=== PATIENT | male | born 1970 | race Caucasian/White ===

== ENCOUNTER 2017-07-12 08:08 | Emergency (ER) | payer MEDICAID ==
[~2017-07-12] VITALS: Ht 193 cm; Wt 180.1 kg
--- NOTE | 2017-07-12 08:20 | NUR ---
Presents to ER c/o Pain and swelling to L hand s/p trip and fall 3 days ago. Also c/o Bilateral lower extremity swelling x 3 days. Patient is a/ox 4. Breathing even and unlabored. No SOB, NAD. vitals stable. Safety and comfort measures in place. Awaiting md orders.
--- NOTE | 2017-07-12 08:40 | NUR ---
new iv started on R. wrist, 18g. blood drawn and sent to lab.
[2017-07-12 09:07] LABS: BASOPHILS # (AUTO) 0.1 /CMM (0.0-0.2); BASOPHILS % (AUTO) 0.6 % (0.0-2.0); EOSINOPHILS # (AUTO) 0.4 /CMM (0.0-0.7); EOSINOPHILS % (AUTO) 3.4 % (0.0-6.0); HEMATOCRIT 39 % (39-51); HEMOGLOBIN 13.3 g/dL (13.5-17.5); LYMPHOCYTES # (AUTO) 1.8 /CMM (0.8-4.8); LYMPHOCYTES % (AUTO) 15.5 % (20.0-44.0); MEAN CORPUSCULAR HEMOGLOBIN 29 PG (26.0-33.0); MEAN CORPUSCULAR HGB CONC 34 g/dl (31.0-36.0); MEAN CORPUSCULAR VOLUME 86 fL (80-96); MONOCYTES # (AUTO) 1.5 /CMM (0.1-1.30); MONOCYTES % (AUTO) 12.7 % (2.0-12.0); NEUTROPHILS % (AUTO) 67.8 % (43.0-81.0); PLATELET COUNT (AUTO) 293 /CMM (150-450); RDW COEFFICIENT OF VARIATION 13.5 (11.5-15.0); RED BLOOD CELL COUNT(AUTO) 4.58 MIL/uL (4.5-6.0); WHITE BLOOD COUNT (AUTO) 11.8 K/uL (4.3-11.0)
--- NOTE | 2017-07-12 09:15 | NUR ---
heat treatment technician at bedside.
[2017-07-12 09:28] LABS: INR 0.93 (0.87-1.13)
[2017-07-12 09:40] LABS: CALCIUM, SERUM 9.4 mg/dL (8.5-10.1); CARBON DIOXIDE 26 mmol/L (21-32); CHLORIDE 99 mmol/L (98-107); GLUCOSE 103 mg/dL (74-106); POTASSIUM 4.1 mmol/L (3.5-5.1); SODIUM SERUM 135 mmol/L (136-145); UREA NITROGEN, BLOOD 13 mg/dL (7-18)
[2017-07-12 09:48] LABS: TROPONIN I < 0.017 ng/mL (0.00-0.056)
--- NOTE | 2017-07-12 09:51 | NUR ---
us tech at bedside.
[2017-07-12 09:54] LABS: ALANINE AMINOTRANSFERASE 39 U/L (12-78); ALBUMIN 3.4 g/dL (3.4-5.0); ALKALINE PHOSPHATASE 104 U/L (46-116); ASPARTATE AMINOTRANSFERASE 43 U/L (15-37); B-TYPE NATRIURETIC PEPTIDE 84 PG/ML (0-125); BILIRUBIN,DIRECT 0.1 mg/dL (0.0-0.2); BILIRUBIN,TOTAL 0.6 mg/dL (0.2-1.0); TOTAL PROTEIN, SERUM 7.6 g/dL (6.4-8.2)
--- NOTE | 2017-07-12 11:00 | NUR ---
Patient discharged to home in stable condition. Written and verbal after care instructions given. Patient verbalizes understanding of instruction.
--- NOTE | 2017-07-12 11:00 | NUR ---
IV removed. Catheter intact and site benign. Pressure and 4x4 applied to site. No bleeding noted.
[2017-07-12 11:02] VITALS: BP 150/95
== END 2017-07-12 11:03 | disposition home or self-care (01) ==
LOC: ER 08:12
DX: S69.82XA Other specified injuries of left wrist, hand and finger(s), initial encounter (principal); R60.0 Localized edema; I10 Essential (primary) hypertension; W01.10XA Fall on same level from slipping, tripping and stumbling with subsequent striking against unspecified object, initial encounter; Y93.89 Activity, other specified; Y92.89 Other specified places as the place of occurrence of the external cause; Y99.0 Civilian activity done for income or pay
CPT/HCPCS: 36415; 71045; 73130; 80048; 80076; 83880; 84484; 85025; 85730; 93005; 93970; 99285; A4606; Z7610

== ENCOUNTER 2017-07-15 11:38 | Emergency (ER) | payer MEDICAID ==
[~2017-07-15] VITALS: Ht 185.4 cm; Wt 180.1 kg
--- NOTE | 2017-07-15 11:50 | NUR ---
PATIENT TO ED DT COUGH X 1 WEEK. PATIENT NOTED WITH MULTIPLE REDNESS AND RASHES,. PATIENT APPEARS IN MILD DISTRESS. COMPLAINING OF COUGH. SKIN IS WARM TO TOUCH AND NON DIAPHORETIC. PATIENT IS AFEBRILE. GOWNED PT AND PLACED ON TELE MONITOR. VSS
--- NOTE | 2017-07-15 11:53 | NUR ---
PATIENT IS COMPLAINING OF SORETHROAT. PER PT IT STARTED SINCE FRIDAY. PT IS NOTED TRYING TO CLEAR HIS THROAT FREQUENTLY.
[2017-07-15] MEDS ORDERED: diphenhydrAMINE HCL 50 MG/ML VIAL IV ONE (12:00)
[2017-07-15] MEDS ORDERED: FAMOTIDINE/PF INJ 20 MG/2 ML VIAL IV ONE ×2 (12:00→12:10)
[2017-07-15] MEDS ORDERED: methylPREDNISolone SOD SUCC 125 MG/2ML VIAL IV ONE (12:00)
[2017-07-15] MEDS ORDERED: IV NS 0.9% 1,000 ML BAG IV ONE (12:00)
[2017-07-15] MEDS ORDERED: EPINEPHRINE (1:1000) MDV 30 MG/30ML VIAL SUBCUT ONE (12:00)
[2017-07-15] MEDS ORDERED: diphenhydrAMINE HCL 50 MG/ML VIAL ONE (12:09)
[2017-07-15] MEDS ORDERED: methylPREDNISolone SOD SUCC 125 MG/2ML VIAL ONE (12:09)
[2017-07-15] MEDS ORDERED: EPINEPHRINE (1:1000) 1 MG/ML AMPUL ONE (12:11)
[2017-07-15 12:13] LABS: BASOPHILS # (AUTO) 0.1 /CMM (0.0-0.2); BASOPHILS % (AUTO) 0.5 % (0.0-2.0); EOSINOPHILS # (AUTO) 0.5 /CMM (0.0-0.7); EOSINOPHILS % (AUTO) 3.3 % (0.0-6.0); HEMATOCRIT 40 % (39-51); HEMOGLOBIN 13.6 g/dL (13.5-17.5); LYMPHOCYTES % (AUTO) 12.5 % (20.0-44.0); MEAN CORPUSCULAR HEMOGLOBIN 29 PG (26.0-33.0); MEAN CORPUSCULAR HGB CONC 34 g/dl (31.0-36.0); MEAN CORPUSCULAR VOLUME 85 fL (80-96); MONOCYTES # (AUTO) 1.3 /CMM (0.1-1.30); MONOCYTES % (AUTO) 8.3 % (2.0-12.0); NEUTROPHILS # (AUTO) 12.3 /CMM (1.8-8.9); NEUTROPHILS % (AUTO) 75.4 % (43.0-81.0); PLATELET COUNT (AUTO) 402 /CMM (150-450); RDW COEFFICIENT OF VARIATION 12.3 (11.5-15.0); RED BLOOD CELL COUNT(AUTO) 4.62 MIL/uL (4.5-6.0); WHITE BLOOD COUNT (AUTO) 16.2 K/uL (4.3-11.0)
[2017-07-15] MEDS ORDERED: IV NS 0.9% 0 ML IV ONE (12:20)
[2017-07-15] MEDS ORDERED: IOHEXOL-300 100 ML VIAL IV ONE (12:20)
[2017-07-15 12:22] LABS: CALCIUM, SERUM 9.2 mg/dL (8.5-10.1); POTASSIUM 3.8 mmol/L (3.5-5.1)
--- NOTE | 2017-07-15 13:05 | NUR ---
CALLED DR GILL[facility] ANSWERING SERV[facility], PREFORM MACHINE OPERATOR DR AMARO WAS PAGED.
--- NOTE | 2017-07-15 13:32 | NUR ---
CALLED DR MONTOYA ANSWERING SERVICE [phone], WAS PAGED.
--- NOTE | 2017-07-15 13:47 | NUR ---
CALLED PHARMACY FOR CLINDAMUCIN
--- NOTE | 2017-07-15 13:50 | NUR ---
CALLED DR SMITH PAINTING MANAGER ANESTHESIOLOGY WAS PAGED.
[2017-07-15] MEDS ORDERED: CLINDAMYCIN 600 MG in IV D5W 100 ML IV ONE (14:00)
--- NOTE | 2017-07-15 14:10 | NUR ---
CALLED [facility] [place] TO PRESENT CASE. ON THE PHONE WITH DR VIEIRA.
--- NOTE | 2017-07-15 14:15 | NUR ---
DR VIEIRA SPEAKING TO DR SMITH (ANESTHELOGIST)
--- NOTE | 2017-07-15 14:21 | NUR ---
CALLED [facility], SPOKE TO HEMP FIBER TAKER OFF, HE STATED THEY DONT HAVE AND ENT SENIOR TECHNICAL EDITOR.
--- NOTE | 2017-07-15 14:28 | NUR ---
CALLED [facility], THEY STATED THEY ARE CLOSED DUE TO SATURATION.
--- NOTE | 2017-07-15 14:37 | NUR ---
CALLED [facility] , THEY STATED THEY DONT HAVE ANY BEDS AVAILABLE.
--- NOTE | 2017-07-15 14:48 | NUR ---
DR. AMARO (ENT) CALLED BACK, TALKING TO DR. VIEIRA.
--- NOTE | 2017-07-15 14:54 | NUR ---
CALLED [facility], SPOKE WITH SORTING GRAPPLE OPERATOR, SHE STATED THEY ARE FULL AND HAVE NO AVILABLE BEDS.
--- NOTE | 2017-07-15 15:14 | NUR ---
RT CALLED FOR RACEMIC BREATHING TREATMENT
--- NOTE | 2017-07-15 15:20 | NUR ---
CALLED [facility] SPOKE WITH [facility], THEY ARE WORKING ON FINDING A BED.
[2017-07-15] MEDS ORDERED: RACEPINEPHRINE HCL 2.25% NEB 0.5 ML VIAL.NEB IH ONE ×2 (15:24→15:30)
--- NOTE | 2017-07-15 16:58 | NUR ---
CALLED [facility], THEY HAVE ENT SERVICE BUT DO NOT HAVE ANY BEDS AVAILABLE AT THE TIME.
--- NOTE | 2017-07-15 17:46 | NUR ---
PATIENT ON BED, VSS
--- NOTE | 2017-07-15 18:10 | NUR ---
PT WITH EPISODE OF REMOVING O2 SENSOR AND BLOOD PRESSURE CUFF. EXPLAINED IMPORTANCE
--- NOTE | 2017-07-15 19:16 | NUR ---
RECEIVED REPORT FROM RUSSELL BAINS FOR SHI. PT APPEARS COMFORTABLE. PT REFUSED TO CHECK 02% AT THIS TIME. NO SOB NOTED. Addendum: 07/15/17 at 1916 by NII RISK AND BENEFITS EXPLAINED X3. PT STRONGLY REFUSED AT THIS TIME.
--- NOTE | 2017-07-15 19:17 | NUR ---
PT TO REMAIN NPO UNTILL FURTHER ORDER. PT AWARE
--- NOTE | 2017-07-15 19:20 | NUR ---
Patient does not wish to proceed with medical care recommended by Dr. Roman. Patient given information related to possible complications, up to and including , which could occur as a result of leaving the hospital at this time. Patient verbalizes understanding of risks involved due to leaving against medical advice. Patient has signed AMA form. IV removed. Catheter intact and site benign. Pressure and 4x4 applied to site. No bleeding noted.
[2017-07-15 19:24] VITALS: BP 146/90
== END 2017-07-15 19:24 | disposition left against medical advice (07) ==
LOC: ER 11:41
DX: D72.829 Elevated white blood cell count, unspecified (principal); E66.01 Morbid (severe) obesity due to excess calories; J02.9 Acute pharyngitis, unspecified; I10 Essential (primary) hypertension; F17.200 Nicotine dependence, unspecified, uncomplicated; Z60.2 Problems related to living alone
CPT/HCPCS: 36415; 70360-TC; 71045-TC; 80048-TC; 85025-TC; A4606; J0171; J1200; J2930; J3490; J7050; J7060; Q9967; Z7610

== ENCOUNTER 2017-12-19 13:06 | Inpatient (IN) | payer MEDICAID ==
[~2017-12-19] VITALS: Ht 193 cm; Wt 178.7 kg
[2017-12-19 12:00] VITALS: BP 89/60
--- NOTE | 2017-12-19 13:10 | NUR ---
C/O TACHYCARDIA AND SOB, ALSO C/O CHEST DISCOMFORT STARTED THIS AM, NAD NOTED, VSS, RESP EVEN AND UNLABORED, PT WAS PUT ON MONITOR, WAITING FOR MD DEWEY
[2017-12-19] MEDS ORDERED: IV NS 0.9% 500 ML BAG IV ONE (13:30)
[2017-12-19 13:45] LABS: BASOPHILS # (AUTO) 0.2 /CMM (0.0-0.2); BASOPHILS % (AUTO) 1.2 % (0.0-2.0); EOSINOPHILS % (AUTO) 0.7 % (0.0-6.0); HEMATOCRIT 49 % (39-51); LYMPHOCYTES % (AUTO) 19.1 % (20.0-44.0); MEAN CORPUSCULAR HEMOGLOBIN 28 PG (26.0-33.0); MEAN CORPUSCULAR HGB CONC 33 g/dl (31.0-36.0); MEAN CORPUSCULAR VOLUME 85 fL (80-96); MONOCYTES # (AUTO) 1.8 /CMM (0.1-1.30); MONOCYTES % (AUTO) 11.6 % (2.0-12.0); NEUTROPHILS # (AUTO) 10.5 /CMM (1.8-8.9); NEUTROPHILS % (AUTO) 67.4 % (43.0-81.0); PLATELET COUNT (AUTO) 344 /CMM (150-450); RED BLOOD CELL COUNT(AUTO) 5.73 MIL/uL (4.5-6.0); WHITE BLOOD COUNT (AUTO) 15.6 K/uL (4.3-11.0)
[2017-12-19 13:53] LABS: CALCIUM, SERUM 9.3 mg/dL (8.5-10.1); CARBON DIOXIDE 25 mmol/L (21-32); CHLORIDE 97 mmol/L (98-107); CREATININE 3.6 mg/dL (0.6-1.3); GLUCOSE 103 mg/dL (74-106); POTASSIUM 3.6 mmol/L (3.5-5.1); SODIUM SERUM 132 mmol/L (136-145); UREA NITROGEN, BLOOD 30 mg/dL (7-18)
[2017-12-19 13:56] LABS: INR 0.95 (0.85-1.15)
[2017-12-19 13:59] LABS: ALANINE AMINOTRANSFERASE 43 U/L (12-78); ALBUMIN 3.9 g/dL (3.4-5.0); ALKALINE PHOSPHATASE 108 U/L (46-116); ASPARTATE AMINOTRANSFERASE 40 U/L (15-37); BILIRUBIN,DIRECT 0.2 mg/dL (0.0-0.2); BILIRUBIN,TOTAL 0.9 mg/dL (0.2-1.0); TOTAL PROTEIN, SERUM 8.1 g/dL (6.4-8.2)
[2017-12-19 14:01] LABS: TROPONIN I < 0.017 ng/mL (0.00-0.056)
[2017-12-19 14:40] LABS: THYROID STIMULATING HORMONE 7.647 uIU/mL (0.358-3.74)
[2017-12-19 14:49] LABS: PHOSPHORUS 6.8 mg/dL (2.5-4.9)
[2017-12-19] MEDS ORDERED: LOSA1TAB15 PO (14:59)
[2017-12-19] MEDS ORDERED: METO25TA3 PO (14:59)
[2017-12-19] MEDS ORDERED: ASPIRIN 325 MG TABLET ONE (15:52)
[2017-12-19 16:00] VITALS: BP 89/60
[2017-12-19] MEDS ORDERED: ZOLPIDEM TARTRATE 5 MG TABLET PO PRN (16:00)
[2017-12-19] MEDS ORDERED: ASPIRIN 325 MG TABLET PO ONE (16:00)
[2017-12-19] MEDS ORDERED: ACETAMINOPHEN 325 MG TABLET PO PRN (16:00)
[2017-12-19] MEDS ORDERED: ONDANSETRON HCL/PF 4 MG/2 ML VIAL IVP PRN (16:00)
--- NOTE | 2017-12-19 16:00 | NUR ---
MASTER [employer] RECEIVED PATIENT FROM ER DEPARTMENT, ALERT AND ORIENTED X4, BREATHING EVEN AND UNLABORED, NO SOB NOTED, PATIENT ABLE TO AMBULATE INDEPENDENTLY, C/O BACK PAIN AND SHOULDER PAIN BUT PER PATIENT "I HAVE CHRONIC PAIN, ELIZA BEEN UNCOMFORTABLE FOR 30 YEARS." PATIENT IS ADMITTED FOR ACUTE RENAL FAILURE UNDER CHAN GLOVER, RECEIVED ORDERS FROM CHAN GLOVER, ORDER NOTED AND CARRIED OUT. SKIN ASSESSMENT DONE, SKIN CLEAR AND INTACT, BLE WITH +2 EDEMA, INSTRUCTED PATIENT TO ELEVATE LEGS. PATIENT KEPT COMFORTABLE, NEEDS ATTENDED AND MET, CALL LIGHT WITHIN REACH, WILL CONTINUE TO MONITOR.
[2017-12-19] MEDS: IV NS 0.9% 1,000 ML IV PRN (17:03)
[2017-12-19] MEDS: HYDROCODONE/APAP 10/325MG 1 EA TABLET PO PRN (17:43)
--- NOTE | 2017-12-19 18:15 | NUR ---
RN NOTES PATIENT A/OX4, NO DISTRESS NOTED, DENIES PAIN OR DISCOMFORT AT THIS TIME, PATIENT GIVEN NORCO AND EFFECTIVE, IVF HYDRATION NS @ 100ML/HR AND TOLERATING WELL. NEEDS ATTENDED AND MET, CALL LIGHT WITHIN REACH, WILL ENDORSE TO HULLER OPERATOR FOR SHI.
--- NOTE | 2017-12-19 19:15 | NUR ---
TELE/RN NOTES RECEIVED PT. SITING UP IN BED. PT. IS AWAKE, ALERT AND ORIENTED X4. BREATHING EVEN AND UNLABORED ON ROOM AIR. NO SOB, RESPIRATORY DISTRESS OR COMPLAINTS OF PAIN NOTED AT THIS TIME. NO COMPLAINTS OF CHEST PAIN NOTED AT THIS TIME. PT. WITH EXTERNAL OPERATIONS LOGISTICS ANALYST PRESENT AND INTACT CURRENT RHYTHM = SINUS RHYTHM HR 99. PT. WITH RIGHT AC 18 GAUGE PERIPHERAL IV PRESENT, PATENT AND INTACT ADMINISTERING TO PT. NS @ 100ML/HR. BED LOCKED AND IN LOWEST POSITION, SIDE RAILS UP X2, CALL LIGHT WITHIN REACH, WILL CONTINUE TO MONITOR.
[2017-12-19 20:00] VITALS: BP 100/58
[2017-12-20] VITALS: BP 109/64
[2017-12-20] MEDS: IV NS 0.9% 1,000 ML IV PRN ×2 (03:59→19:25)
[2017-12-20 04:00] VITALS: BP 128/68
--- NOTE | 2017-12-20 06:22 | NUR ---
TELE/RN NOTES PT. IS LYING IN BED RESTING. BREATHING EVEN AND UNLABORED ON ROOM AIR. NO SOB, RESPIRATORY DISTRESS OR COMPLAINTS OF PAIN NOTED AT THIS TIME. PT. WITH EXTERNAL CLINICAL APPEALS REVIEWER PRESENT AND INTACT CURRENT RHYTHM = SINUS RHYTHM HR 85. PT. WITH RIGHT AC 18 GAUGE PERIPHERAL IV PRESENT, PATENT AND INTACT ADMINISTERING TO PT. NS @ 100ML/HR. ALL PT. NEEDS MET. BED LOCKED AND IN LOWEST POSITION, SIDE RAILS UP X2, CALL LIGHT WITHIN REACH, WILL ENDORSE TO DAYSHIFT NURSE FOR CONTINUITY OF CARE.
[2017-12-20 06:54] LABS: BASOPHILS # (AUTO) 0.1 /CMM (0.0-0.2); BASOPHILS % (AUTO) 0.6 % (0.0-2.0); EOSINOPHILS % (AUTO) 2.8 % (0.0-6.0); HEMATOCRIT 44 % (39-51); HEMOGLOBIN 14.4 g/dL (13.5-17.5); LYMPHOCYTES # (AUTO) 2.6 /CMM (0.8-4.8); LYMPHOCYTES % (AUTO) 25.4 % (20.0-44.0); MEAN CORPUSCULAR HEMOGLOBIN 29 PG (26.0-33.0); MEAN CORPUSCULAR HGB CONC 33 g/dl (31.0-36.0); MEAN CORPUSCULAR VOLUME 87 fL (80-96); MONOCYTES # (AUTO) 1.3 /CMM (0.1-1.30); MONOCYTES % (AUTO) 13.1 % (2.0-12.0); NEUTROPHILS # (AUTO) 5.9 /CMM (1.8-8.9); NEUTROPHILS % (AUTO) 58.1 % (43.0-81.0); PLATELET COUNT (AUTO) 282 /CMM (150-450); RDW COEFFICIENT OF VARIATION 13.9 (11.5-15.0); RED BLOOD CELL COUNT(AUTO) 5.01 MIL/uL (4.5-6.0); WHITE BLOOD COUNT (AUTO) 10.1 K/uL (4.3-11.0)
[2017-12-20 07:04] LABS: BILIRUBIN,URINE NEGATIVE (NEGATIVE); BLOOD, URINE NEGATIVE Ery/uL (NEGATIVE); COLOR,URINE YELLOW (YELLOW); KETONES,URINE NEGATIVE (NEGATIVE); LEUKOCYTE ESTERASE ,URINE TRACE (NEGATIVE); NITRITE, URINE NEGATIVE (NEGATIVE); PH,URINE 5.5 (5.0-8.0); PROTEIN,URINE NEGATIVE (NEGATIVE); UGLUCOSE NEGATIVE (NEGATIVE); UROBILINOGEN,URINE 0.2 EU/dL (0.2)
[2017-12-20 07:08] LABS: CALCIUM, SERUM 8.5 mg/dL (8.5-10.1); MAGNESIUM 2.3 mg/dL (1.8-2.4); PHOSPHORUS 5.1 mg/dL (2.5-4.9); POTASSIUM 3.1 mmol/L (3.5-5.1)
[2017-12-20 07:11] LABS: APPEARANCE,URINE CLOUDY (CLEAR)
[2017-12-20 07:19] LABS: BACTERIA,URINE Few /HPF (None Seen); RBC,URINE 0-2 /HPF (0-2); SQUAMOUS EPITHELIAL CELL,UR Rare /HPF (None Seen)
[2017-12-20 07:20] LABS: CALCIUM OXALATE CRYSTALS,UR Moderate /HPF (None Seen)
--- NOTE | 2017-12-20 07:25 | NUR ---
COPY READER NOTES PATIENT RESTING INSIDE ROOM. AWAKE, ALERT AND ORIENTED, VERBALLY RESPONSIVE AND RESPONDS TO VERBAL AND TACTILE STIMULI. BREATHING EVEN AND UNLABORED. NO SOB OR ACUTE DISTRESS NOTED AT THIS TIME. PATIENT CALM AND RELAXED. NO CHANGES IN LOC NOTED AT THIS TIME. IV INTACT AND PATENT, NO SWELLING OR BLEEDING NOTED ON SITE. WILL CONTINUE TO MONITOR. BED LOCKED AND IN LOW POSITION. BILATERAL UPPER SIDE RAILS UP AND LOCKED. CALL LIGHT WITHIN EASY REACH
[2017-12-20 08:00] VITALS: BP 123/74
[2017-12-20] MEDS: METOPROLOL SUCCINATE 25 MG TAB.SR.24H PO SCH (08:20)
[2017-12-20] MEDS: ASPIRIN EC 81 MG TABLET.DR PO SCH (08:20)
[2017-12-20] MEDS ORDERED: LOSARTAN POTASSIUM 50 MG TABLET PO SCH (09:00)
[2017-12-20] MEDS ORDERED: POTASSIUM CHLORIDE 10 MEQ TABLET.SA PO ONE (10:30)
[2017-12-20 16:00] VITALS: BP 124/77
[2017-12-20] MEDS: CEPHALEXIN MONOHYDRATE 250 MG CAPSULE PO SCH ×2 (16:15→21:28)
--- NOTE | 2017-12-20 18:48 | NUR ---
MS RN NOTES PATIENT RESTING INSIDE ROOM. AWAKE, ALERT AND ORIENTED X 4, VERBALLY RESPONSIVE AND RESPONDS TO VERBAL AND TACTILE STIMULI. BREATHING EVEN AND UNLABORED. NO SOB OR ACUTE DISTRESS NOTED AT THIS TIME. NO CHANGES IN LOC NOTED AT THIS TIME. IV INTACT AND PATENT, NO BLEEDING NOTED ON SITE. WILL ENDORSE TO INCOMING SHIFT FOR SHI. BED LOCKED AND IN LOW POSITION. BILATERAL UPPER SIDE RAILS UP AND LOCKED. CALL LIGHT WITHIN EASY REACH
--- NOTE | 2017-12-20 19:25 | NUR ---
MS/RN NOTES RECEIVED PT. LYING IN BED RESTING. BREATHING EVEN AND UNLABORED ON ROOM AIR. PT. IS EASILY AROUSABLE TO NAME. NO SOB, RESPIRATORY DISTRESS OR COMPLAINTS OF PAIN NOTED AT THIS TIME. NO COMPLAINTS OF CHEST PAIN NOTED AT THIS TIME. PT. WITH RIGHT AC 18 GAUGE PERIPHERAL IV PRESENT, PATENT AND INTACT ADMINISTERING TO PT. NS @ 100ML/HR. BED LOCKED AND IN LOWEST POSITION, SIDE RAILS UP X2, CALL LIGHT WITHIN REACH, WILL CONTINUE TO MONITOR.
[2017-12-20 20:34] VITALS: BP 108/73
[2017-12-20] MEDS: HYDROCODONE/APAP 10/325MG 1 EA TABLET PO PRN (21:29)
[2017-12-21] MEDS: CEPHALEXIN MONOHYDRATE 250 MG CAPSULE PO SCH (05:42)
--- NOTE | 2017-12-21 06:54 | NUR ---
MS/RN NOTES PT. IS SITTING UP IN BED. AWAKE, ALERT AND ORIENTED X4. BREATHING EVEN AND UNLABORED ON ROOM AIR. NO SOB, RESPIRATORY DISTRESS OR COMPLAINTS OF PAIN NOTED AT THIS TIME. PT. WITH RIGHT AC 18 GAUGE PERIPHERAL IV PRESENT, PATENT AND INTACT. PT. CONTINUES TO REFUSE IV FLUIDS AT THIS TIME STATING HE IS DRINKING A LOT OF WATER AND DOES NOT WANT TO BE ATTACHED TO THE IV. ALL PT. NEEDS MET. BED LOCKED AND IN LOWEST POSITION, SIDE RAILS UP X2, CALL LIGHT WITHIN REACH, WILL ENDORSE TO DAYSHIFT NURSE FOR CONTINUITY OF CARE.
[2017-12-21 07:30] LABS: BASOPHILS # (AUTO) 0.1 /CMM (0.0-0.2); BASOPHILS % (AUTO) 0.6 % (0.0-2.0); EOSINOPHILS % (AUTO) 3.8 % (0.0-6.0); HEMATOCRIT 45 % (39-51); HEMOGLOBIN 14.9 g/dL (13.5-17.5); LYMPHOCYTES # (AUTO) 2.2 /CMM (0.8-4.8); LYMPHOCYTES % (AUTO) 23.5 % (20.0-44.0); MEAN CORPUSCULAR HEMOGLOBIN 29 PG (26.0-33.0); MEAN CORPUSCULAR HGB CONC 33 g/dl (31.0-36.0); MEAN CORPUSCULAR VOLUME 88 fL (80-96); MONOCYTES # (AUTO) 1.3 /CMM (0.1-1.30); MONOCYTES % (AUTO) 13.3 % (2.0-12.0); NEUTROPHILS # (AUTO) 5.5 /CMM (1.8-8.9); NEUTROPHILS % (AUTO) 58.8 % (43.0-81.0); PLATELET COUNT (AUTO) 273 /CMM (150-450); RDW COEFFICIENT OF VARIATION 13.9 (11.5-15.0); RED BLOOD CELL COUNT(AUTO) 5.09 MIL/uL (4.5-6.0); WHITE BLOOD COUNT (AUTO) 9.4 K/uL (4.3-11.0)
--- NOTE | 2017-12-21 07:35 | NUR ---
MS RN OPENING NOTES RECEIVED PT LAYING IN BED WITH HOB ELEVATED, RESTING COMFORTABLY. PT IS ALERT AND RESPONSIVE. PUPILS ARE REACTIVE TO LIGHT. BILATERAL HAND INVESTOR RELATIONS DIRECTOR ARE STRONG AND EQUAL. PT DENIES ANY PAIN, N/V, SOB. IV INTACT, NO INFILTRATION NOTED. DRESSING KEPT CLEAN AND DRY. PT REFUSES IV FLUIDS AND STATES HE DRINKS A LOT. NO S/SX OF DEHYDRATION NOTED. SAFETY MEASURES ARE IN PLACE. CALL LIGHT IS LEFT WITHIN REACH. WILL MONITOR THROUGHOUT SHIFT FOR CONTINUITY OF CARE.
[2017-12-21 07:46] LABS: ALBUMIN 3.2 g/dL (3.4-5.0); BILIRUBIN,TOTAL 0.9 mg/dL (0.2-1.0); CALCIUM, SERUM 8.9 mg/dL (8.5-10.1); CREATININE 1.1 mg/dL (0.6-1.3); MAGNESIUM 2.2 mg/dL (1.8-2.4); PHOSPHORUS 3.1 mg/dL (2.5-4.9); TOTAL PROTEIN, SERUM 7.2 g/dL (6.4-8.2)
[2017-12-21 08:00] VITALS: BP 120/77
[2017-12-21] MEDS: ASPIRIN EC 81 MG TABLET.DR PO SCH (08:35)
[2017-12-21 08:36] VITALS: BP 120/77
[2017-12-21] MEDS: METOPROLOL SUCCINATE 25 MG TAB.SR.24H PO SCH (08:36)
[2017-12-21] MEDS ORDERED: LOSA100T15 PO (10:21)
--- NOTE | 2017-12-21 11:25 | NUR ---
TILE AND MOTTLE SUPERVISOR NOTE PT DISCHARGE TO HOME VIA PERSONAL VEHICLE IN STABLE CONDITION. PT IS A/O X4. EXPLAINED DISCHARGE PAPERWORK TO PT WITH VERBAL AND WRITTEN AGREEMENT. PT IS AFEBRILE, RESPIRATIONS ARE EVEN AND UNLABORED, NOT IN ANY ACUTE DISTRESS NOTED. PT DENIES ANY PAIN, NO C/O SOB, N/V. ABDOMEN IS ROUND AND NONDISTENDED. DENIES ANY BLADDER DISCOMFORT. EDEMA NOTED TO BLE PITTING +1. PT IS AMBULATORY WITH NO DIFFICULTY WALKING. IV SITE REMOVED, APPLIED PRESSURE AND TOLERATED WELL. ID BANDS REMOVED. ACCOMPANIED PT TO VEHICLE IN STABLE CONDITION WITH ALL BELONGINGS.
== END 2017-12-21 11:15 | disposition home or self-care (01) | DRG 198 ==
LOC: ER 13:10 → TELE 15:31 → MED 12-20 08:39
PROVIDERS: ADMIT Nurse Practitioner Acute Care; ATTEND Nurse Practitioner Acute Care
DX: I25.10 Atherosclerotic heart disease of native coronary artery without angina pectoris (principal); N17.0 Acute kidney failure with tubular necrosis; E43 Unspecified severe protein-calorie malnutrition; M94.0 Chondrocostal junction syndrome [Tietze]; Z68.42 Body mass index [BMI] 45.0-49.9, adult; E66.01 Morbid (severe) obesity due to excess calories; I10 Essential (primary) hypertension; Z88.5 Allergy status to narcotic agent; Z79.899 Other long term (current) drug therapy; G89.4 Chronic pain syndrome; Z72.0 Tobacco use; K46.9 Unspecified abdominal hernia without obstruction or gangrene; M19.90 Unspecified osteoarthritis, unspecified site; Z83.0 Family history of human immunodeficiency virus [HIV] disease; E83.39 Other disorders of phosphorus metabolism; M54.5 Low back pain; F43.9 Reaction to severe stress, unspecified; D72.829 Elevated white blood cell count, unspecified; E03.9 Hypothyroidism, unspecified; E87.1 Hypo-osmolality and hyponatremia; N39.0 Urinary tract infection, site not specified; F12.90 Cannabis use, unspecified, uncomplicated
CPT/HCPCS: 36415; 71045-TC; 76770-TC; 80048-TC; 80053-TC; 80061-TC; 80076-TC; 81000-TC; 82550-TC; 82553-TC; 83735-TC; 83880; 83970; 84100-TC; 84439-TC; 84443-TC; 84484-TC; 85025-TC; 85730-TC; 87081-TC; 87086-TC; 93307-TC; 93970-TC; A4606; J7030; J7040; Z7610

== ENCOUNTER 2018-05-14 20:32 | Emergency (ER) | payer MEDICAID ==
[~2018-05-14] VITALS: Ht 193 cm; Wt 167.8 kg
[~2018-05-14 20:32] MED LIST: LOSA100T31 PO; METO25TA3 PO
--- NOTE | 2018-05-14 20:40 | NUR ---
PT BIBSELF COMPLAINING OF SOB X1 DAY. PT ALSO COMPLAINING OF CHEST PAIN AND PRODUCTIVE COUGH WITH YELLOW SPUTUM. PT STATES HE EASILY GETS OUT OF BREATH WHEN WALKING AROUND. PT SMOKES ABOUT 1PACK/DAY. PT IS AAOX4. RESPIRATIONS EVEN AND UNLABORED. SKIN WARM AND INTACT. NO ACUTE DISTRESS NOTED AT THIS TIME. WILL CONTINUE TO MONITOR
--- NOTE | 2018-05-14 20:44 | NUR ---
MD AT BEDSIDE FOR EVALUATION
[2018-05-14] MEDS ORDERED: methylPREDNISolone SOD SUCC 125 MG/2ML VIAL ONE (20:54)
--- NOTE | 2018-05-14 20:58 | NUR ---
IV INITIATED LEFT AC 18G. LABS DRAWN FROM SITE. JUNIOR ANALYST AT BEDSIDE FOR COLLECTION. IV INTACT AND PATENT, PLACED ON SALINE LOCK
[2018-05-14] MEDS ORDERED: IPRATROPIUM NEB FS 0.5 MG/2.5 ML AMPUL.NEB ONE (20:59)
[2018-05-14] MEDS ORDERED: ALBUTEROL FS 2.5 MG/3 ML VIAL.NEB ONE (20:59)
[2018-05-14] MEDS ORDERED: IPRATROPIUM NEB FS 0.5 MG/2.5 ML AMPUL.NEB NEB ONE (21:00)
[2018-05-14] MEDS ORDERED: methylPREDNISolone SOD SUCC 125 MG/2ML VIAL IV ONE (21:00)
[2018-05-14] MEDS ORDERED: ALBUTEROL FS 2.5 MG/3 ML VIAL.NEB CONTNEB ONE (21:00)
--- NOTE | 2018-05-14 21:03 | NUR ---
RT AT BEDSIDE FOR BREATHING TREATMENT
[2018-05-14 21:04] LABS: BASOPHILS # (AUTO) 0.1 /CMM (0.0-0.2); BASOPHILS % (AUTO) 0.7 % (0.0-2.0); EOSINOPHILS % (AUTO) 2.1 % (0.0-6.0); HEMATOCRIT 40 % (39-51); HEMOGLOBIN 13.4 g/dL (13.5-17.5); LYMPHOCYTES # (AUTO) 2.9 /CMM (0.8-4.8); LYMPHOCYTES % (AUTO) 21.5 % (20.0-44.0); MEAN CORPUSCULAR HGB CONC 34 g/dl (31.0-36.0); MEAN CORPUSCULAR VOLUME 89 fL (80-96); MONOCYTES # (AUTO) 1.7 /CMM (0.1-1.30); MONOCYTES % (AUTO) 12.5 % (2.0-12.0); NEUTROPHILS # (AUTO) 8.7 /CMM (1.8-8.9); NEUTROPHILS % (AUTO) 63.2 % (43.0-81.0); PLATELET COUNT (AUTO) 279 /CMM (150-450); RED BLOOD CELL COUNT(AUTO) 4.48 MIL/uL (4.5-6.0); WHITE BLOOD COUNT (AUTO) 13.7 K/uL (4.3-11.0)
--- NOTE | 2018-05-14 21:05 | NUR ---
PT UNABLE TO PROVIDE URINE SAMPLE AT THIS TIME, AWARE
--- NOTE | 2018-05-14 21:10 | NUR ---
RADIOLOGY AT BEDSIDE FOR CXR
[2018-05-14 21:14] LABS: CALCIUM, SERUM 8.8 mg/dL (8.5-10.1); CARBON DIOXIDE 35 mmol/L (21-32); CHLORIDE 100 mmol/L (98-107); CREATININE 1.5 mg/dL (0.6-1.3); GLUCOSE 103 mg/dL (74-106); SODIUM SERUM 138 mmol/L (136-145); UREA NITROGEN, BLOOD 37 mg/dL (7-18)
[2018-05-14 21:26] LABS: ALANINE AMINOTRANSFERASE 33 U/L (12-78); ALBUMIN 3.3 g/dL (3.4-5.0); ALKALINE PHOSPHATASE 109 U/L (46-116); ASPARTATE AMINOTRANSFERASE 28 U/L (15-37); B-TYPE NATRIURETIC PEPTIDE 17 PG/ML (0-125); BILIRUBIN,DIRECT 0.1 mg/dL (0.0-0.2); BILIRUBIN,TOTAL 0.4 mg/dL (0.2-1.0); TOTAL PROTEIN, SERUM 6.9 g/dL (6.4-8.2)
[2018-05-14] MEDS ORDERED: IOHEXOL-350 100 ML VIAL IV ONE (22:04)
--- NOTE | 2018-05-14 22:45 | NUR ---
PT ABLE TO AMBULATE TO RESTROOM. 900ML OUTPUT. POST BLADDER SCAN SHOWED 0ML. URINE COLLECTED AND SENT TO LAB.
--- NOTE | 2018-05-14 23:01 | NUR ---
Patient discharged to home in stable condition. Written and verbal after care instructions given. Patient verbalizes understanding of instruction. IV removed. Catheter intact and site benign. Pressure and 4x4 applied to site. No bleeding noted. Pt ambulatory with a steady gait
[2018-05-14 23:03] VITALS: BP 117/68
[2018-05-14 23:15] LABS: APPEARANCE,URINE CLEAR (CLEAR); BILIRUBIN,URINE NEGATIVE (NEGATIVE); BLOOD, URINE NEGATIVE Ery/uL (NEGATIVE); COLOR,URINE YELLOW (YELLOW); KETONES,URINE NEGATIVE (NEGATIVE); LEUKOCYTE ESTERASE ,URINE NEGATIVE (NEGATIVE); NITRITE, URINE NEGATIVE (NEGATIVE); PROTEIN,URINE NEGATIVE (NEGATIVE); UGLUCOSE NEGATIVE (NEGATIVE); UROBILINOGEN,URINE 0.2 EU/dL (0.2)
== END 2018-05-14 23:04 | disposition home or self-care (01) ==
LOC: ER 20:35
DX: R06.02 Shortness of breath (principal); R07.89 Other chest pain; R05 Cough; R55 Syncope and collapse; F17.200 Nicotine dependence, unspecified, uncomplicated; I10 Essential (primary) hypertension; Z98.890 Other specified postprocedural states; Z88.6 Allergy status to analgesic agent; Z60.2 Problems related to living alone; Z79.899 Other long term (current) drug therapy
CPT/HCPCS: 36415; 71045; 71275; 80048; 80076; 81001; 83880; 84484; 85025; 85378; 93005; 94640 ×2; 96374; 99284; 99406; A4606; J2930; Q9967; Z7610; 81000-TC

== ENCOUNTER 2018-05-27 01:32 | Emergency (ER) | payer MEDICAID ==
[~2018-05-27] VITALS: Ht 193 cm; Wt 167.8 kg
[2018-05-27 01:41] VITALS: BP 126/88
[2018-05-27] MEDS ORDERED: DEXAMETHASONE SOD PHOSPHATE 10 MG/ML VIAL ONE (01:47)
[2018-05-27] MEDS ORDERED: IPRATROPIUM NEB FS 0.5 MG/2.5 ML AMPUL.NEB NEB ONE (02:00)
[2018-05-27] MEDS ORDERED: ALBUTEROL FS 2.5 MG/3 ML VIAL.NEB CONTNEB ONE (02:00)
[2018-05-27] MEDS ORDERED: DEXAMETHASONE SOD PHOSPHATE 4 MG/ML VIAL IM ONE (02:00)
[2018-05-27] MEDS ORDERED: ALBUTEROL FS 2.5 MG/3 ML VIAL.NEB ONE (02:01)
== END 2018-05-27 03:14 | disposition home or self-care (01) ==
LOC: ER 01:34
DX: S93.492A Sprain of other ligament of left ankle, initial encounter (principal); J45.909 Unspecified asthma, uncomplicated; I10 Essential (primary) hypertension; F17.200 Nicotine dependence, unspecified, uncomplicated; Z96.612 Presence of left artificial shoulder joint; Z98.890 Other specified postprocedural states; Z88.5 Allergy status to narcotic agent; Z60.2 Problems related to living alone; X50.1XXA Overexertion from prolonged static or awkward postures, initial encounter; Y93.89 Activity, other specified; Y92.89 Other specified places as the place of occurrence of the external cause; Y99.8 Other external cause status
CPT/HCPCS: 71045; 73610; 94644; 96372; 99285; A4606; J1100; Z7610

== ENCOUNTER 2018-08-10 17:04 | Emergency (ER) | payer MEDICAID ==
[~2018-08-10] VITALS: Ht 167.6 cm; Wt 187.3 kg
[2018-08-10] MEDS ORDERED: ALBUTEROL FS 2.5 MG/3 ML VIAL.NEB ONE ×2 (17:56→19:48)
[2018-08-10] MEDS ORDERED: IPRATROPIUM NEB FS 0.5 MG/2.5 ML AMPUL.NEB ONE (17:56)
[2018-08-10] MEDS ORDERED: methylPREDNISolone SOD SUCC 125 MG/2ML VIAL ONE (17:59)
[2018-08-10] MEDS ORDERED: HYDROCODONE/APAP 10/325MG 1 EA TABLET PO ONE (18:00)
[2018-08-10] MEDS ORDERED: IV NS 0.9% 1,000 ML BAG IV ONE (18:00)
[2018-08-10] MEDS ORDERED: ALBUTEROL FS 2.5 MG/3 ML VIAL.NEB CONTNEB ONE (18:00)
[2018-08-10] MEDS ORDERED: methylPREDNISolone SOD SUCC 125 MG/2ML VIAL IV ONE (18:00)
[2018-08-10] MEDS ORDERED: HYDROCODONE/APAP 10/325MG 1 EA TABLET ONE (18:00)
[2018-08-10] MEDS ORDERED: IPRATROPIUM NEB FS 0.5 MG/2.5 ML AMPUL.NEB NEB ONE (18:00)
[2018-08-10 18:10] LABS: CALCIUM, SERUM 9.5 mg/dL (8.5-10.1); CARBON DIOXIDE 31 mmol/L (21-32); CHLORIDE 104 mmol/L (98-107); CREATININE 1.2 mg/dL (0.6-1.3); GLUCOSE 116 mg/dL (74-106); POTASSIUM 3.8 mmol/L (3.5-5.1); SODIUM SERUM 141 mmol/L (136-145); UREA NITROGEN, BLOOD 7 mg/dL (7-18)
[2018-08-10 18:11] LABS: BASOPHILS # (AUTO) 0.1 /CMM (0.0-0.2); BASOPHILS % (AUTO) 0.6 % (0.0-2.0); HEMATOCRIT 41 % (39-51); HEMOGLOBIN 13.7 g/dL (13.5-17.5); LYMPHOCYTES # (AUTO) 2.3 /CMM (0.8-4.8); LYMPHOCYTES % (AUTO) 19.9 % (20.0-44.0); MEAN CORPUSCULAR HGB CONC 34 g/dl (31.0-36.0); MEAN CORPUSCULAR VOLUME 88 fL (80-96); MONOCYTES # (AUTO) 1.5 /CMM (0.1-1.30); MONOCYTES % (AUTO) 13.2 % (2.0-12.0); NEUTROPHILS # (AUTO) 7.2 /CMM (1.8-8.9); NEUTROPHILS % (AUTO) 62.3 % (43.0-81.0); PLATELET COUNT (AUTO) 283 /CMM (150-450); RED BLOOD CELL COUNT(AUTO) 4.64 MIL/uL (4.5-6.0); WHITE BLOOD COUNT (AUTO) 11.5 K/uL (4.3-11.0)
[2018-08-10 18:33] LABS: ALBUMIN 3.4 g/dL (3.4-5.0); BILIRUBIN,DIRECT 0.1 mg/dL (0.0-0.2); BILIRUBIN,TOTAL 0.2 mg/dL (0.2-1.0); TOTAL PROTEIN, SERUM 6.9 g/dL (6.4-8.2)
--- NOTE | 2018-08-10 19:11 | NUR ---
Reclining in [facility] 45degrees. Awaiting MD re-evaluation and update. Nurse Knowledge Exchange w/RUSSELL Ortiz
[2018-08-10] MEDS ORDERED: ALBUTEROL FS 2.5 MG/3 ML VIAL.NEB NEB ONE (19:30)
--- NOTE | 2018-08-10 19:35 | NUR ---
PT AMBULATORY WITH STEADY GAIT TO BATHROOM.
[2018-08-10] MEDS ORDERED: KETOROLAC TROMETHAMINE INJ 30 MG/ML VIAL ONE (19:38)
--- NOTE | 2018-08-10 19:45 | NUR ---
PT BEING MONITORED.
--- NOTE | 2018-08-10 19:48 | NUR ---
RT AT BEDSIDE.
[2018-08-10] MEDS ORDERED: KETOROLAC TROMETHAMINE INJ 30 MG/ML VIAL IV ONE (20:00)
--- NOTE | 2018-08-10 20:16 | NUR ---
Patient discharged to home in stable condition. Written and verbal after care instructions given. Patient verbalizes understanding of instruction. IV removed. Catheter intact and site benign. Pressure and 4x4 applied to site. No bleeding noted. Pt ambulatory with steady gait.
[2018-08-10 20:24] VITALS: BP 127/88
== END 2018-08-10 20:27 | disposition home or self-care (01) ==
LOC: ER 17:22
DX: J20.9 Acute bronchitis, unspecified (principal); F17.200 Nicotine dependence, unspecified, uncomplicated; E66.01 Morbid (severe) obesity due to excess calories; E86.0 Dehydration; I10 Essential (primary) hypertension; Z68.44 Body mass index [BMI] 60.0-69.9, adult; Z98.890 Other specified postprocedural states; Z88.6 Allergy status to analgesic agent; Z60.2 Problems related to living alone; Z79.899 Other long term (current) drug therapy
CPT/HCPCS: 36415; 71045; 73030; 80048; 80076; 84484; 85025; 93005; 94640 ×3; 96361; 96374; 96375; 99285; 99406; J1885; J2930

== ENCOUNTER 2018-10-18 00:16 | Emergency (ER) | payer MEDICAID ==
[~2018-10-18] VITALS: Ht 193 cm; Wt 195.0 kg
[2018-10-18 00:30] VITALS: BP 123/87
[2018-10-18] MEDS ORDERED: FLUORESCEIN SODIUM OPHTH 1 EA STRIP ONE (01:28)
[2018-10-18] MEDS ORDERED: TETRACAINE HCL/PF 0.5% UD 2 ML BOTTLE ONE (01:28)
[2018-10-18] MEDS ORDERED: ERYTHROMYCIN BASE OPHTH 3.5 GM TUBE ONE (01:56)
[2018-10-18] MEDS ORDERED: ERYTHROMYCIN BASE OPHTH 3.5 GM TUBE OP ONE (02:30)
== END 2018-10-18 02:21 | disposition home or self-care (01) ==
LOC: ER 00:18
DX: H10.33 Unspecified acute conjunctivitis, bilateral (principal); I10 Essential (primary) hypertension; F17.200 Nicotine dependence, unspecified, uncomplicated; Z98.890 Other specified postprocedural states; Z88.6 Allergy status to analgesic agent; Z60.2 Problems related to living alone; Z79.899 Other long term (current) drug therapy

== ENCOUNTER 2019-01-31 20:42 | Emergency (ER) | payer MEDICAID ==
[~2019-01-31] VITALS: Ht 193 cm; Wt 202.3 kg
--- NOTE | 2019-01-31 21:15 | NUR ---
BIBS FOR C/O CONSTIPATION X 3 DAYS AND URINARY RETENTION X ONE AND A HALF DAY AND ABD PAIN
--- NOTE | 2019-01-31 21:30 | NUR ---
F/C INSERTED W/ 150ML OUT PUT OF CLEAR YELLOW URINE. URINE COLLECTED
[2019-01-31 21:48] LABS: BASOPHILS # (AUTO) 0.2 /CMM (0.0-0.2); EOSINOPHILS % (AUTO) 2.1 % (0.0-6.0); HEMATOCRIT 43 % (39-51); HEMOGLOBIN 14.7 g/dL (13.5-17.5); LYMPHOCYTES # (AUTO) 2.7 /CMM (0.8-4.8); LYMPHOCYTES % (AUTO) 17.5 % (20.0-44.0); MEAN CORPUSCULAR HGB CONC 34 g/dl (31.0-36.0); MEAN CORPUSCULAR VOLUME 88 fL (80-96); MONOCYTES # (AUTO) 1.8 /CMM (0.1-1.30); NEUTROPHILS # (AUTO) 10.4 /CMM (1.8-8.9); NEUTROPHILS % (AUTO) 67.4 % (43.0-81.0); PLATELET COUNT (AUTO) 255 /CMM (150-450); RED BLOOD CELL COUNT(AUTO) 4.92 MIL/uL (4.5-6.0); WHITE BLOOD COUNT (AUTO) 15.4 K/uL (4.3-11.0)
[2019-01-31 21:56] LABS: CALCIUM, SERUM 8.8 mg/dL (8.5-10.1); CREATININE 1.4 mg/dL (0.6-1.3); POTASSIUM 3.8 mmol/L (3.5-5.1)
[2019-01-31 21:59] LABS: APPEARANCE,URINE Clear (CLEAR); BILIRUBIN,URINE Negative (NEGATIVE); BLOOD, URINE Negative Ery/uL (NEGATIVE); COLOR,URINE Yellow (YELLOW); KETONES,URINE Negative (NEGATIVE); LEUKOCYTE ESTERASE ,URINE Negative (NEGATIVE); NITRITE, URINE Negative (NEGATIVE); PH,URINE 5.5 (5.0-8.0); PROTEIN,URINE Negative (NEGATIVE); UGLUCOSE Negative (NEGATIVE); UROBILINOGEN,URINE 0.2 EU/dL (0.2)
[2019-01-31 22:01] LABS: ALBUMIN 3.4 g/dL (3.4-5.0); BILIRUBIN,TOTAL 0.7 mg/dL (0.2-1.0)
--- NOTE | 2019-01-31 22:02 | NUR ---
F/C FLUSHED TO INSURE PATENCY.
[2019-01-31] MEDS ORDERED: HYDROCODONE/APAP 10/325MG 1 EA TABLET ONE (22:45)
[2019-01-31] MEDS ORDERED: HYDROCODONE/APAP 10/325MG 1 EA TABLET PO ONE (23:00)
[2019-02-01] MEDS ORDERED: MAGNESIUM CITRATE 296 ML BOTTLE PO ONE
[2019-02-01] MEDS ORDERED: MAGNESIUM CITRATE 296 ML BOTTLE ONE (00:06)
--- NOTE | 2019-02-01 00:12 | NUR ---
F/C D/C'D W/ 350ML OF CLEAR YELLOW URINE.
--- NOTE | 2019-02-01 00:47 | NUR ---
Patient discharged to home in stable condition. Written and verbal after care instructions given. Patient verbalizes understanding of instruction.
[2019-02-01 00:48] VITALS: BP 114/72
== END 2019-02-01 00:48 | disposition home or self-care (01) ==
LOC: ER 20:44
DX: R33.9 Retention of urine, unspecified (principal); I10 Essential (primary) hypertension; F17.200 Nicotine dependence, unspecified, uncomplicated; Z98.890 Other specified postprocedural states; Z88.5 Allergy status to narcotic agent; Z60.2 Problems related to living alone
CPT/HCPCS: 36415; 74018; 80053-TC; 81000-TC; 83690-TC; 85025-TC

== ENCOUNTER 2019-03-17 11:18 | Emergency (ER) | payer MEDICAID ==
[~2019-03-17] VITALS: Ht 193 cm; Wt 203.7 kg
--- NOTE | 2019-03-17 11:40 | NUR ---
PATIENT C/O HEADACHE X 3 DAYS. PATIENT A/OX4, BREATHING EVEN AND UNLABORED, NO SOB NOTED, NEEDS ATTENDED, KEPT COMFORTABLE. ATTACHED TO THE BUSINESS ACCOUNT EXECUTIVE.
[2019-03-17] MEDS ORDERED: KETOROLAC TROMETHAMINE INJ 30 MG/ML VIAL IV ONE (12:30)
[2019-03-17] MEDS ORDERED: DEXAMETHASONE SOD PHOSPHATE 10 MG in IV D5W 50 ML IV ONE (12:30)
[2019-03-17] MEDS ORDERED: IV NS 0.9% 1,000 ML BAG IV ONE (12:30)
[2019-03-17] MEDS ORDERED: diphenhydrAMINE HCL 50 MG/ML VIAL IV ONE (12:30)
[2019-03-17] MEDS ORDERED: PROCHLORPERAZINE EDISYLATE 10 MG/2 ML VIAL IVP ONE (12:30)
[2019-03-17] MEDS ORDERED: DEXAMETHASONE SOD PHOSPHATE 10 MG/ML VIAL ONE (12:51)
[2019-03-17] MEDS ORDERED: diphenhydrAMINE HCL 50 MG/ML VIAL ONE (12:52)
[2019-03-17] MEDS ORDERED: KETOROLAC TROMETHAMINE INJ 30 MG/ML VIAL ONE (12:52)
[2019-03-17] MEDS ORDERED: PROCHLORPERAZINE EDISYLATE 10 MG/2 ML VIAL ONE (12:52)
--- NOTE | 2019-03-17 14:30 | NUR ---
PATIENT RESTING, STATED HE FEELS BETTER. VITALS STABLE.
[2019-03-17 15:03] VITALS: BP 115/40
--- NOTE | 2019-03-17 15:03 | NUR ---
Ambulatory with a steady gait. IV removed. Catheter intact and site benign. Pressure and 4x4 applied to site. No bleeding noted.Patient discharged to home in stable condition. Written and verbal after care instructions given. Patient verbalizes understanding of instruction.
== END 2019-03-17 15:03 | disposition home or self-care (01) ==
LOC: ER 11:18
DX: G43.909 Migraine, unspecified, not intractable, without status migrainosus (principal); I10 Essential (primary) hypertension; F17.200 Nicotine dependence, unspecified, uncomplicated; E66.01 Morbid (severe) obesity due to excess calories; Z68.43 Body mass index [BMI] 50.0-59.9, adult; Z98.890 Other specified postprocedural states; Z88.5 Allergy status to narcotic agent; Z60.2 Problems related to living alone; Z79.899 Other long term (current) drug therapy
CPT/HCPCS: 96374; 96375; 99283; J0780; J1100 ×2; J1200; J1885; J7030; J7060 ×2

== ENCOUNTER 2019-03-21 13:23 | Inpatient (IN) | payer MEDICAID ==
[~2019-03-21] VITALS: Ht 193 cm; Wt 200.9 kg
--- NOTE | 2019-03-21 13:39 | NUR ---
CAME IN FOR DIFFUSE ABDOMINAL PAIN W/ N/V/D STARTED YESTERDAY AFTER EATING FASTFOOD, TO ER BED 10, HOOKED TO MONITOR, CHANGED TO GOWN, AWAITING MD DEWEY
--- NOTE | 2019-03-21 13:50 | NUR ---
DR KIMBALL AT BEDSIDE
[2019-03-21] MEDS ORDERED: IV NS 0.9% 500 ML BAG IV ONE (14:00)
[2019-03-21] MEDS ORDERED: ONDANSETRON HCL/PF 4 MG/2 ML VIAL IVP ONE (14:00)
[2019-03-21 14:03] LABS: BASOPHILS # (AUTO) 0.1 /CMM (0.0-0.2); BASOPHILS % (AUTO) 0.9 % (0.0-2.0); EOSINOPHILS % (AUTO) 0.8 % (0.0-6.0); HEMATOCRIT 47 % (39-51); HEMOGLOBIN 15.5 g/dL (13.5-17.5); LYMPHOCYTES # (AUTO) 3.5 /CMM (0.8-4.8); LYMPHOCYTES % (AUTO) 22.9 % (20.0-44.0); MEAN CORPUSCULAR HGB CONC 33 g/dl (31.0-36.0); MEAN CORPUSCULAR VOLUME 87 fL (80-96); MONOCYTES # (AUTO) 1.6 /CMM (0.1-1.30); MONOCYTES % (AUTO) 10.5 % (2.0-12.0); NEUTROPHILS % (AUTO) 64.9 % (43.0-81.0); PLATELET COUNT (AUTO) 328 /CMM (150-450); RED BLOOD CELL COUNT(AUTO) 5.41 MIL/uL (4.5-6.0); WHITE BLOOD COUNT (AUTO) 15.5 K/uL (4.3-11.0)
[2019-03-21] MEDS ORDERED: ONDANSETRON HCL/PF 4 MG/2 ML VIAL ONE (14:05)
--- NOTE | 2019-03-21 14:10 | NUR ---
GRETEL THOMPSON AT BEDSIDE
[2019-03-21 14:12] LABS: POTASSIUM 4.4 mmol/L (3.5-5.1)
[2019-03-21] MEDS ORDERED: predniSONE 20 MG TABLET ONE (14:25)
[2019-03-21] MEDS ORDERED: ALBUTEROL FS 2.5 MG/3 ML VIAL.NEB ONE (14:29)
[2019-03-21] MEDS ORDERED: IPRATROPIUM NEB FS 0.5 MG/2.5 ML AMPUL.NEB ONE (14:29)
--- NOTE | 2019-03-21 14:29 | NUR ---
RT AT BEDSIDE FOR BREATHING TX
[2019-03-21] MEDS ORDERED: IPRATROPIUM NEB FS 0.5 MG/2.5 ML AMPUL.NEB NEB ONE (14:30)
[2019-03-21] MEDS ORDERED: ALBUTEROL FS 2.5 MG/3 ML VIAL.NEB NEB ONE (14:30)
[2019-03-21] MEDS ORDERED: predniSONE 20 MG TABLET PO ONE (14:30)
[2019-03-21 14:31] LABS: ALBUMIN 3.5 g/dL (3.4-5.0); BILIRUBIN,DIRECT 0.1 mg/dL (0.0-0.2); BILIRUBIN,TOTAL 0.6 mg/dL (0.2-1.0); TOTAL PROTEIN, SERUM 7.1 g/dL (6.4-8.2)
[2019-03-21] MEDS ORDERED: ACETAMINOPHEN ES 500 MG TABLET ONE (15:54)
[2019-03-21] MEDS ORDERED: LOPERAMIDE HCL (2 MG CAP) 2 MG CAPSULE PO ONE ×2 (15:54→16:00)
[2019-03-21] MEDS ORDERED: KETOROLAC TROMETHAMINE INJ 30 MG/ML VIAL IV ONE (16:00)
[2019-03-21] MEDS ORDERED: ACETAMINOPHEN 325 MG TABLET PO ONE (16:00)
[2019-03-21] MEDS ORDERED: IV NS 0.9% 1,000 ML BAG IV ONE (16:00)
--- NOTE | 2019-03-21 16:20 | NUR ---
CALLED FOR MS BED AND GAVE PAPER TO ADMITTING TO GET AUTH
--- NOTE | 2019-03-21 16:36 | NUR ---
GOT OK TO STAY
--- NOTE | 2019-03-21 16:40 | NUR ---
[facility] PAGED
--- NOTE | 2019-03-21 16:45 | NUR ---
US TECH AT BEDSIDE
[2019-03-21] MEDS ORDERED: MAGNESIUM HYDROXIDE 30 ML UDC PO PRN (17:00)
[2019-03-21] MEDS ORDERED: ACETAMINOPHEN 325 MG TABLET PO PRN (17:00)
[2019-03-21] MEDS ORDERED: MAG HYDROX/AL HYDROX/SIMETH 30 ML UDC PO PRN (17:00)
[2019-03-21] MEDS ORDERED: Z GUARD REMEDY 2 OZ OINT TP PRN (17:00)
[2019-03-21] MEDS ORDERED: ZOLPIDEM TARTRATE 5 MG TABLET PO PRN (17:00)
[2019-03-21] MEDS ORDERED: ONDANSETRON HCL/PF 4 MG/2 ML VIAL IVP PRN (17:00)
--- NOTE | 2019-03-21 17:17 | NUR ---
REPORT GIVEN TO BETY WELLS OF MS UNIT
--- NOTE | 2019-03-21 17:40 | NUR ---
MS RN NOTES PATIENT ARRIVED VIA GURNEY. PATIENT ALERT, ORIENTED X3. PATIENT NOTED TO BE AMBULATORY. SKIN INTACT. PATIENT ORIENTED TO ROOM. CALL LIGHT WITHIN REACH. BED IN LOW LOCKED POSITION. CALL LIGHT WITHIN REACH. PATIENT REPORTS HAVING DIARRHEA FOR MULTIPLE DAYS. STATES HE HAD SOME DIZZINESS. WILL CONTINUE TO MONITOR.
[2019-03-21] MEDS: IV NS 0.9% 1,000 ML IV PRN (18:47)
--- NOTE | 2019-03-21 19:38 | NUR ---
MS/RN OPENING NOTES RECEIVED PATIENT SITTING IN BED, AWAKE, ALERT X3, ABLE TO VERBALIZE NEEDS, HAVING DINNER OF CLEAR LIQUID DIET. NO PAIN VERBALIZED BUT WOULD LIKE TO RELIEVE HIS DIARRHEA. BELONGINGS WITHIN REACH, DISCUSSED PLAN OF CARE. IV HYDRATION RUNNING AT 75 ML/HR ON RIGHT HAND GAUGE 20. INSTRUCTED TO ASK FOR ASSISTANCE TO GO TO BATHROOM. BED LOCKED, CALL LIGHTS WITHIN REACH, RESPIRATIONS EVEN AND UNLABORED. SKIN WARM TO TOUCH. WILL MONITOR. MD BALDOMERO REID AT BEDSIDE WITH PATIENT.
[2019-03-21 20:00] VITALS: BP 92/55
[2019-03-21] MEDS ORDERED: TEMAZEPAM 15 MG CAPSULE PO PRN (20:00)
[2019-03-21] MEDS ORDERED: ALBUTEROL FS 2.5 MG/0.5 ML VIAL.NEB NEB PRN (20:00)
[2019-03-21] MEDS ORDERED: IPRATROPIUM NEB FS 0.5 MG/2.5 ML AMPUL.NEB NEB PRN (20:00)
[2019-03-21] MEDS ORDERED: PETROLATUM,WHITE PACKET 5 GM PACKET TP PRN (20:30)
--- NOTE | 2019-03-21 20:30 | NUR ---
MS/RN NOTES MD REID MADE AWARE REGARDING PATIENT REQUEST FOR SMOKING, CESSATION , ORDER FOR NICOTINE PATCH.
--- NOTE | 2019-03-21 20:30 | NUR ---
ms/rn notes critical lab for lactic acid received at 3.3, communicated to md ugalde and with no new order.
--- NOTE | 2019-03-21 20:46 | NUR ---
ms.rn wayne teixeira assisted to bathroom, to collect urine. home medications obtained to send to pharmacy.
[2019-03-21] MEDS: MORPHINE SULFATE INJ 4 MG/ML DISP.SYRIN IV PRN (22:56)
[2019-03-21] MEDS: diphenhydrAMINE HCL 50 MG/ML VIAL IV PRN (22:57)
--- NOTE | 2019-03-21 23:04 | NUR ---
ms/rn notes pain medication administered via ivp morphine with benadryl . to monitor for any changes.
[2019-03-21 23:39] LABS: BILIRUBIN,URINE NEGATIVE (NEGATIVE); BLOOD, URINE NEGATIVE Ery/uL (NEGATIVE); COLOR,URINE YELLOW (YELLOW); KETONES,URINE NEGATIVE (NEGATIVE); LEUKOCYTE ESTERASE ,URINE NEGATIVE (NEGATIVE); NITRITE, URINE NEGATIVE (NEGATIVE); PH,URINE 5.5 (5.0-8.0); PROTEIN,URINE NEGATIVE (NEGATIVE); UGLUCOSE NEGATIVE (NEGATIVE); UROBILINOGEN,URINE 0.2 EU/dL (0.2)
[2019-03-21 23:40] LABS: APPEARANCE,URINE CLEAR (CLEAR)
--- NOTE | 2019-03-22 01:31 | NUR ---
MS/RN NOTES PATIENT ALERT, ORIENTED REPORTED PAIN 6/10, UNABLE TO SLEEP AND REQUESTED SLEEP MEDICATION. RESTORIL GIVEN TO MONITOR HOURS OF SLEEP AND EFFECTIVENES.
[2019-03-22] MEDS: MORPHINE SULFATE INJ 4 MG/ML DISP.SYRIN IV PRN ×4 (05:47→23:32)
[2019-03-22] MEDS: diphenhydrAMINE HCL 50 MG/ML VIAL IV PRN (05:47)
--- NOTE | 2019-03-22 05:53 | NUR ---
MS/RN NOTES PATIENT REQUESTED SOME SNACKS OF JELLO, PROVIDED PITCHER OF EATER AND PAIN MEDICATION PER REQUEST FOR PATIENT 12/26 IN RIGHT ABDOMEN AND BENADRYL IVP GIVEN. B/P CHECK 112/81, OXYGENATION ON 2 LITER OXYGEN AT 99%. RESPIRATIONS EVEN AND UNLABORED.
[2019-03-22 05:55] VITALS: BP 112/81
--- NOTE | 2019-03-22 06:43 | NUR ---
316-2 ms/rn notes patient alert,oriented x4, able to verbalized needs, pain medicsation provided, unable to sleep well and even with restoril given. ambulatory and kept comfortable, cooperative to care. tolerated medication. monitored for safety. bed locked, call lights within reach.
[2019-03-22 06:59] LABS: BASOPHILS % (AUTO) 0.4 % (0.0-2.0); HEMATOCRIT 43 % (39-51); HEMOGLOBIN 14.3 g/dL (13.5-17.5); LYMPHOCYTES # (AUTO) 1.9 /CMM (0.8-4.8); LYMPHOCYTES % (AUTO) 16.5 % (20.0-44.0); MEAN CORPUSCULAR HGB CONC 33 g/dl (31.0-36.0); MEAN CORPUSCULAR VOLUME 87 fL (80-96); MONOCYTES # (AUTO) 0.7 /CMM (0.1-1.30); MONOCYTES % (AUTO) 6.4 % (2.0-12.0); NEUTROPHILS # (AUTO) 8.6 /CMM (1.8-8.9); NEUTROPHILS % (AUTO) 76.7 % (43.0-81.0); PLATELET COUNT (AUTO) 282 /CMM (150-450); RED BLOOD CELL COUNT(AUTO) 4.98 MIL/uL (4.5-6.0); WHITE BLOOD COUNT (AUTO) 11.2 K/uL (4.3-11.0)
[2019-03-22 07:22] LABS: POTASSIUM 4.2 mmol/L (3.5-5.1)
[2019-03-22 07:23] LABS: CALCIUM, SERUM 8.1 mg/dL (8.5-10.1); CREATININE 2.3 mg/dL (0.6-1.3); MAGNESIUM 2.4 mg/dL (1.8-2.4); PHOSPHORUS 5.4 mg/dL (2.5-4.9)
--- NOTE | 2019-03-22 07:55 | NUR ---
MS RN NOTES PATIENT RECEIVED RESTING INSIDE ROOM. AWAKE, ALERT AND ORIENTED X 4. VERBALLY RESPONSIVE AND RESPONDS TO VERBAL AND TACTILE STIMULI. NO ACUTE DISTRESS. DENIES ANY PAIN OR DISCOMFORT AT THIS TIME. PATIENT CALM AND RELAXED. CONTINUE ON CLEAR LIQUID DIET, PATIENT AWARE AND VERBALIZED UNDERSTANDING. WILL CONTINUE TO MONITOR. BED LOCKED AND IN LOW POSITION. BILATERAL UPPER SIDE RAILS UP AND LOCKED. CALL LIGHT WITHIN EASY REACH
[2019-03-22 08:00] VITALS: BP 102/69
[2019-03-22] MEDS: methylPREDNISolone SOD SUCC 40 MG/ML VIAL IV SCH ×2 (08:32→17:20)
[2019-03-22] MEDS ORDERED: LOSA1TAB39 PO (09:56)
--- NOTE | 2019-03-22 10:31 | NUR ---
WOUND CARE CONSULT: PT PRESENTS WITH PAINFUL RT HEEL FISSURES, PRESENT ON ADMISSION. RECOMMEND DPM CONSULT. DR SKY NOTIFIED OF DPM CONSULT REQUEST. PT IS INDEPENDENT WITH BED MOBILITY AND CONTINENT. WILL SEE PRN.
--- NOTE | 2019-03-22 10:33 | NUR ---
MS RN NOTES PATIENT VOICING CONCERN REGARDING CURRENT DIET. PATIENT VERBALIZED THAT HE WANTS TO START EATING SOLID FOOD. PATIENT ALSO VERBALIZED WANTING TO START ON NICOTINE PATCH, VERBALIZED THAT HE SMOKES ABOUT 8-10 STICKS PER DAY. PLACED CALL TO DR MENDOZA AND MADE AWARE. WITH NEW ORDERS TO START NICOTINE PATCH 14MG TD DAILY. ALSO TO CHANGE CURRENT DIET TO REGULAR. ORDERS NOTED AND CARRIED OUT. PATIENT MADE AWARE AND VERBALIZED UNDERSTANDING. WILL CONTINUE TO MONITOR
[2019-03-22] MEDS: NICOTINE PATCH (14MG) 14 MG PATCH.TD24 TD SCH (11:07)
[2019-03-22] MEDS: IV NS 0.9% 1,000 ML IV PRN (14:09)
--- NOTE | 2019-03-22 14:40 | NUR ---
MS RN NOTES PLACED CALL TO DR MENDOZA AND MADE AWARE OF PATIENT'S HOME MEDICATION. DR MENDOZA AWARE OF PATIENT'S BLOOD PRESSURE, WITH ORDERS TO HOLD CURRENT HOME MEDICATIONS. NOTED AND CARRIED OUT. WILL CONTINUE TO MONITOR
[2019-03-22 16:00] VITALS: BP 100/68
[2019-03-22] MEDS ORDERED: VITAMINS A AND D 56.7 GM TUBE TP PRN (16:00)
[2019-03-22] MEDS ORDERED: PANTOPRAZOLE 40 MG VIAL IV SCH (17:00)
--- NOTE | 2019-03-22 17:08 | NUR ---
MS RN NOTES PATIENT SEEN AND EXAMINED BY MCKENNA KENNEY BOX ICER. WITH NEW ORDERS NOTED AND CARRIED OUT. VERIFIED ORDERS, VERBALIZED THAT US ABDOMEN TO BE DONE 03/23/19. PATIENT TO BE NPO AFTER MIDNIGHT, MAY RESUME REGULAR DIET AFTER ABD ULTRASOUND. ALSO WITH ORDER FOR SURGERY CONSULT WITH DR HAMILTON AND PULMO CONSULT WITH DR KILLIAN. ORDERS NOTED AND CARRIED OUT. WILL CONTINUE TO MONITOR
--- NOTE | 2019-03-22 18:19 | NUR ---
MS RN NOTES PATIENT AWAKE, ALERT AND ORIENTED X 4. SITTING IN BED. PATIENT DENIES ANY PAIN OR DISCOMFORT, NO ACUTE DISTRESS. PATIENT CALM AND RELAXED CONTINUED ON REGULAR DIET. IV IN RIGHT ARM #20G RUNNING NS AT 100ML/HR. SAFETY PRECAUTIONS KEPT IN PLACE. BED LOW AND LOCKED POSITION, 2 RAILING UP. CALL LIGHT KEPT WITHIN REACH.
--- NOTE | 2019-03-22 19:32 | NUR ---
MS/RN OPENING NOTES RECEIVED PATIENT IN BED, AWAKE, ALERT X4, ABLE TO VERBALIZE NEEDS, REPORTE PAIN 7/10, MORPHINE 4 MG IVP GIVEN EARLIER BY AM RN. TO MONITOR PAIN RELIEF. PLAN OF CARE DISCUSSED AND INFORMED TO E NPO AFTER MIDNIGHT PER MD ANDRES FOR US OF ABDOMEN AND RESUME REGULAR DIET AFTERWARD. ON OXYGEN VIA NC AT 2L, ON ISOLATION FOR MRSA, BED LOCKED, IV FLUIDS RUNING AT 75 ML. HR, ON RIGHT HAND. WILL MONITOR. BED LOCKED, CALL LIGHTS WITHIN REACH, WILL MONITOR.
[2019-03-22 20:00] VITALS: BP_SYST 118; BP_DIAS 72; BP_DIAS 77
[2019-03-22] MEDS: MUPIROCIN OINT 2% 22 GM TUBE SCH (20:37)
--- NOTE | 2019-03-22 23:46 | NUR ---
MS/RN NOTES PATIENT WITH 7/10 PAIN IN RIGHT ABDOMEN. IVP MORPHINE 4MG ADMINISTERED, WILL MONITOR PAIN RELIEF.
[2019-03-23] MEDS: IV NS 0.9% 1,000 ML IV PRN (02:03)
--- NOTE | 2019-03-23 02:14 | NUR ---
MS/RN NOTES PATIENT AWAKE, ALERT, WATCHING TV , HAD SPONGE BATH, REFUSED TO HEAVE IV FLUIDS AT THIS TIME,WILL MONITOR.
--- NOTE | 2019-03-23 06:16 | NUR ---
MS/RN NOTES PATIENT ABLE TO SLEEP FEW HOURS, ALERT, ORIENTED X4, ABLE TO VERBALIZE NEEDS, SELF CARE AND MOTIVATED, RESPIRATIONS EVEN ANF UNLABORED WITH OCCASIONAL USE OF OXYGEN FOR COMFORT. ON NPO STATUS FOR ABDOMINAL COMPLETE ULTRASOUND TO RULE OUT ABSCESS OF HERINA, PATIENT WAS INFORMED AND VERBALIZED UNDERSTANDING, PAIN MEDICATION GIVEN 2330 AND DENIES ANY REACTION . WILL ENDORSE TO AM RN FOR SHI. BED LOCKED, ABEL LIGHTS WITHIN REAC.H.
[2019-03-23 06:51] LABS: BASOPHILS % (AUTO) 0.2 % (0.0-2.0); HEMATOCRIT 44 % (39-51); HEMOGLOBIN 14.6 g/dL (13.5-17.5); LYMPHOCYTES # (AUTO) 1.4 /CMM (0.8-4.8); LYMPHOCYTES % (AUTO) 11.6 % (20.0-44.0); MEAN CORPUSCULAR HGB CONC 33 g/dl (31.0-36.0); MEAN CORPUSCULAR VOLUME 87 fL (80-96); MONOCYTES # (AUTO) 0.5 /CMM (0.1-1.30); MONOCYTES % (AUTO) 4.1 % (2.0-12.0); NEUTROPHILS % (AUTO) 84.1 % (43.0-81.0); PLATELET COUNT (AUTO) 276 /CMM (150-450); WHITE BLOOD COUNT (AUTO) 11.8 K/uL (4.3-11.0)
[2019-03-23] MEDS: MORPHINE SULFATE INJ 4 MG/ML DISP.SYRIN IV PRN (06:58)
[2019-03-23 07:02] LABS: CALCIUM, SERUM 8.7 mg/dL (8.5-10.1); CREATININE 1.2 mg/dL (0.6-1.3); MAGNESIUM 2.2 mg/dL (1.8-2.4); PHOSPHORUS 3.3 mg/dL (2.5-4.9); POTASSIUM 4.1 mmol/L (3.5-5.1)
--- NOTE | 2019-03-23 07:08 | NUR ---
MS/RN NOTES PATIETN ALERT, ORIENTED AND VERBALIZE PAIN , WATCHING TV FOR DISTRACTION BUT ON NPO FOR PROCEDURE DISCUSSED CARE AND REPORTED TO FOLLOW UP TIME SO THAT HE CAN GO HOME. IVP MORPHINE GIVEN TO MONITOR EFFECTIVENESS.
[2019-03-23 08:00] VITALS: BP 135/91
[2019-03-23] MEDS: methylPREDNISolone SOD SUCC 40 MG/ML VIAL IV SCH (09:00)
[2019-03-23] MEDS: NICOTINE PATCH (14MG) 14 MG PATCH.TD24 TD SCH (09:00)
[2019-03-23] MEDS: MUPIROCIN OINT 2% 22 GM TUBE SCH (09:00)
--- NOTE | 2019-03-23 12:10 | NUR ---
PATIENT CLEARED FOR DISCHARGE TO HOME BY MD. PATIENT ALERT AND ORIENTED X4, BREATHING UNLABORED ON ROOM AIR, NOT IN ANY DISTRESS. VS ARE STABLE AND WITHIN BASE LINE. LACTIC ACID RECHECKED BEFORE D/C AND NEGATIVE. PATIENT DENIES ANY ABDOMINAL PAIN OR DIARRHEA.PATIENT TOLERATED REGULAR DIET WELL. PATIENT AMBULATORY. DISCHARGE INSTRUCTIONS AND EDUCATION PROVIDED AND PATIENT VERBALIZED UNDERSTANDING. ALL NEEDS ATTENDED PRIOR DISCHARGE. IV ASSESS REMOVED, ID WRIST BAND REMOVED. VALUABLE FORM SIGHED AND ALL BELONGINGS WITH THE PATIENT INCLUDING HOME MEDICATION.PATIENT REFUSED TO TAKE D/C PICTURES. PATIENT WILL F/U WITH PCP IN ONE WEEK. PATIENT SAFELY TRANSFERRED TO [facility] ACCOMPANIED BY NURSE.
[2019-03-24 14:07] LABS: *ANCA ATYPICAL p-ANCA <1:20 titer (Neg:<1:20); *ANCA CYTOPLASMIC (C-ANCA) <1:20 titer (Neg:<1:20); *ANCA PERINUCLEAR (P-ANCA) <1:20 titer (Neg:<1:20); *ANCANTIMYELOPEROXIDASE (MPO) <9.0 U/mL (0.0-9.0); *ANCANTIPROTEINASE 3 (PR-3) AB <3.5 U/mL (0.0-3.5)
== END 2019-03-23 12:10 | disposition home or self-care (01) | DRG 720 ==
LOC: ER 13:25 → MED 17:03
PROVIDERS: ADMIT Nurse Practitioner Acute Care; ATTEND Family Medicine
DX: A41.9 Sepsis, unspecified organism (principal); N17.0 Acute kidney failure with tubular necrosis; E87.2 Acidosis; A08.4 Viral intestinal infection, unspecified; E66.01 Morbid (severe) obesity due to excess calories; Z68.43 Body mass index [BMI] 50.0-59.9, adult; E87.1 Hypo-osmolality and hyponatremia; I10 Essential (primary) hypertension; F12.90 Cannabis use, unspecified, uncomplicated; K40.90 Unilateral inguinal hernia, without obstruction or gangrene, not specified as recurrent; Z88.5 Allergy status to narcotic agent; Z79.899 Other long term (current) drug therapy; M19.90 Unspecified osteoarthritis, unspecified site; F17.200 Nicotine dependence, unspecified, uncomplicated; G89.29 Other chronic pain; Z98.890 Other specified postprocedural states; R23.4 Changes in skin texture; R26.9 Unspecified abnormalities of gait and mobility; M54.30 Sciatica, unspecified side; K76.0 Fatty (change of) liver, not elsewhere classified; G43.909 Migraine, unspecified, not intractable, without status migrainosus; E11.9 Type 2 diabetes mellitus without complications; K21.9 Gastro-esophageal reflux disease without esophagitis; K57.30 Diverticulosis of large intestine without perforation or abscess without bleeding; K43.9 Ventral hernia without obstruction or gangrene; G62.9 Polyneuropathy, unspecified; G47.33 Obstructive sleep apnea (adult) (pediatric); M77.9 Enthesopathy, unspecified
CPT/HCPCS: 36415; 71045-TC; 76700-TC; 76770-TC; 80048-TC; 80061-TC; 80074; 80076-TC; 81000-TC; 83520; 83605-TC; 83690-TC; 83735-TC; 84100-TC; 85025-TC; 86256; 86706; 87081-TC; C9113; G0378; J1200; J2270; J2405; J2920; J7030; J7040

== ENCOUNTER 2019-04-22 05:45 | Emergency (ER) | payer MEDICAID ==
[~2019-04-22] VITALS: Ht 193 cm; Wt 181.4 kg
[~2019-04-22 05:45] MED LIST changes: -LOSA100T31 PO; +LOSA1TAB39 PO
--- NOTE | 2019-04-22 05:45 | NUR ---
PT BIBSELF C/O "I HAVE MIGRAINE HEADACHE" MIGRAINE HEADACHE WITH NAUSEA X2 DAYS. AOX4. RESP EVEN AND UNLABORED. SENSITIVE TO LIGHT. PT ON MONITOR IN BED 7 WITH LIGHTS OFF. WILL CONTINUE TO MONITOR.
[2019-04-22] MEDS ORDERED: METOCLOPRAMIDE HCL 10 MG/2 ML VIAL IV ONE (06:30)
--- NOTE | 2019-04-22 06:36 | NUR ---
BLOOD DRAWN AND GIVEN TO LAB
[2019-04-22] MEDS ORDERED: METOCLOPRAMIDE HCL 10 MG/2 ML VIAL ONE (06:37)
[2019-04-22 06:45] LABS: BASOPHILS # (AUTO) 0.1 /CMM (0.0-0.2); EOSINOPHILS % (AUTO) 3.6 % (0.0-6.0); HEMATOCRIT 41 % (39-51); HEMOGLOBIN 13.6 g/dL (13.5-17.5); LYMPHOCYTES # (AUTO) 2.5 /CMM (0.8-4.8); LYMPHOCYTES % (AUTO) 27.8 % (20.0-44.0); MEAN CORPUSCULAR HGB CONC 34 g/dl (31.0-36.0); MEAN CORPUSCULAR VOLUME 87 fL (80-96); MONOCYTES # (AUTO) 1.1 /CMM (0.1-1.30); MONOCYTES % (AUTO) 12.5 % (2.0-12.0); NEUTROPHILS % (AUTO) 55.1 % (43.0-81.0); PLATELET COUNT (AUTO) 297 /CMM (150-450); RED BLOOD CELL COUNT(AUTO) 4.67 MIL/uL (4.5-6.0); WHITE BLOOD COUNT (AUTO) 9.1 K/uL (4.3-11.0)
[2019-04-22 06:55] LABS: CALCIUM, SERUM 8.6 mg/dL (8.5-10.1); CREATININE 0.9 mg/dL (0.6-1.3); POTASSIUM 3.7 mmol/L (3.5-5.1)
[2019-04-22] MEDS ORDERED: HYDROCODONE/APAP 5/325MG 1 EACH TABLET PO ONE (07:00)
[2019-04-22 07:01] LABS: ALBUMIN 3.2 g/dL (3.4-5.0); BILIRUBIN,DIRECT 0.1 mg/dL (0.0-0.2); BILIRUBIN,TOTAL 0.4 mg/dL (0.2-1.0); TOTAL PROTEIN, SERUM 6.5 g/dL (6.4-8.2)
[2019-04-22] MEDS ORDERED: HYDROCODONE/APAP 5/325MG 1 EACH TABLET ONE (07:25)
--- NOTE | 2019-04-22 07:28 | NUR ---
ASSESSED PT ON BED AWAKE AND ALERT, AAOX4, NOT IN RESPIRATORY DISTRESS, V/S STABLE, KEPT RESTED AND COMFORTABLE, WILL CONTINUE TO MONITOR.
[2019-04-22 07:33] VITALS: BP 135/98
--- NOTE | 2019-04-22 07:50 | NUR ---
IV removed. Catheter intact and site benign. Pressure and 4x4 applied to site. No bleeding noted. Patient discharged to home in stable condition. Written and verbal after care instructions given. Patient verbalizes understanding of instruction.
== END 2019-04-22 07:52 | disposition home or self-care (01) ==
LOC: ER 05:50
DX: G43.909 Migraine, unspecified, not intractable, without status migrainosus (principal); I10 Essential (primary) hypertension; F17.200 Nicotine dependence, unspecified, uncomplicated; Z98.890 Other specified postprocedural states; Z88.6 Allergy status to analgesic agent; Z60.2 Problems related to living alone; Z79.899 Other long term (current) drug therapy
CPT/HCPCS: 36415; 80048; 80076; 85025; 96374; 99283; J2765

== ENCOUNTER 2019-04-29 09:49 | Emergency (ER) | payer MEDICAID ==
[~2019-04-29] VITALS: Ht 193 cm; Wt 190.5 kg
--- NOTE | 2019-04-29 10:00 | NUR ---
R SHOULDER, ELBOW, R INDEX FINGER PAIN S/P FOOT GOT CAUGHT IN A STEP AND FELL. DENIES HEAD INJURY. ABRASIONS NOTED. UTD TO TETANUS. PATIENT A/OX4, CHANGED INTO GOWN, ATTACHED TO THE NURSING SERVICE DIRECTOR. KEPT COMFORTABLE.
--- NOTE | 2019-04-29 10:10 | NUR ---
seen by dr. lima for eval.
[2019-04-29] MEDS ORDERED: HYDROCODONE/APAP 5/325MG 1 EACH TABLET ONE (10:13)
[2019-04-29] MEDS ORDERED: HYDROCODONE/APAP 5/325MG 1 EACH TABLET PO ONE (10:30)
--- NOTE | 2019-04-29 11:41 | NUR ---
Patient discharged to home in stable condition. Written and verbal after care instructions given. Patient verbalizes understanding of instruction.
[2019-04-29 11:44] VITALS: BP 140/88
--- NOTE | 2019-04-29 11:45 | NUR ---
Chuck cox in ED - 04/29/19 at 1145 by GINNA Patient discharged to home in stable condition. Written and verbal after care instructions given. Patient verbalizes understanding of instruction.
== END 2019-04-29 11:45 | disposition home or self-care (01) ==
LOC: ER 09:50
DX: S42.031A Displaced fracture of lateral end of right clavicle, initial encounter for closed fracture (principal); S63.630A Sprain of interphalangeal joint of right index finger, initial encounter; S50.01XA Contusion of right elbow, initial encounter; S30.811A Abrasion of abdominal wall, initial encounter; F17.200 Nicotine dependence, unspecified, uncomplicated; I10 Essential (primary) hypertension; Z88.6 Allergy status to analgesic agent; Z98.890 Other specified postprocedural states; Z60.2 Problems related to living alone; Z79.899 Other long term (current) drug therapy; W11.XXXA Fall on and from ladder, initial encounter; Y93.89 Activity, other specified; Y92.89 Other specified places as the place of occurrence of the external cause; Y99.8 Other external cause status
CPT/HCPCS: 73030-TC; 73080-TC; 73140-TC

== ENCOUNTER 2019-05-29 01:07 | Emergency (ER) | payer MEDICAID ==
[~2019-05-29] VITALS: Ht 190.5 cm; Wt 191.4 kg
--- NOTE | 2019-05-29 01:09 | NUR ---
Chuck cox in ED - 05/29/19 at 0309 by JAYSON Patient discharged to home in stable condition. Written and verbal after care instructions given. Patient verbalizes understanding of instruction.
--- NOTE | 2019-05-29 01:24 | NUR ---
seen and examined by
--- NOTE | 2019-05-29 01:27 | NUR ---
PT CAME TO ER BED 3 C/O RIGHT ARM PAIN. SWELLING NOTED ON RIGHT ELBOW. PT STATES HE FELL OFF THE FIRST STEP OF A LADDER. HAVING THIS ELBOW PAIN FOR 1x MONTH NOW. AAOX4. NO SOB. BREATHING EVENLY AND UNLABORED. CONNECTED TO MONITOR.
--- NOTE | 2019-05-29 01:29 | NUR ---
XRAY AT BEDSIDE
[2019-05-29] MEDS ORDERED: KETOROLAC TROMETHAMINE INJ 60 MG/2 ML VIAL IM ONE ×2 (02:05→02:30)
--- NOTE | 2019-05-29 02:09 | NUR ---
Patient discharged to home in stable condition. Written and verbal after care instructions given. Patient verbalizes understanding of instruction.
[2019-05-29 03:09] VITALS: BP 129/86
== END 2019-05-29 02:10 | disposition home or self-care (01) ==
LOC: ER 01:12
DX: M70.21 Olecranon bursitis, right elbow (principal); I10 Essential (primary) hypertension; F17.200 Nicotine dependence, unspecified, uncomplicated; Z98.890 Other specified postprocedural states; Z88.6 Allergy status to analgesic agent; Z60.2 Problems related to living alone; Z79.899 Other long term (current) drug therapy; Y93.89 Activity, other specified
CPT/HCPCS: 73080; 96372; 99283; 99406; J1885

== ENCOUNTER 2019-12-18 13:57 | Inpatient (IN) | payer MEDICAID ==
[~2019-12-18] VITALS: Ht 182.9 cm; Wt 196.0 kg
--- NOTE | 2019-12-18 14:18 | NUR ---
BIBS FROM HOME TO ER BED 7. AAOX4. NOT IN RESP DISTRESS. BREATHING EVEN AND UNLABORED. AMBULATORY. CAME IN FOR FEELING OF WEAKNESS. PER PT, HE HAS BEEN HAVING DIFFICULTY URINATING AND DIZZY WHEN STANDING UP. PT PRESENTED DIAPHORETIC. 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 AWAITING MD FOR EVAL.
--- NOTE | 2019-12-18 15:15 | NUR ---
IV LINE OBTAINED ON L AC 18G. BLOOD DRAWN AND GIVEN TO HAND COUNTER AT BEDSIDE.
[2019-12-18 15:30] LABS: BASOPHILS # (AUTO) 0.2 /CMM (0.0-0.2); BASOPHILS % (AUTO) 1.2 % (0.0-2.0); EOSINOPHILS % (AUTO) 1.6 % (0.0-6.0); HEMATOCRIT 47 % (39-51); HEMOGLOBIN 15.7 g/dL (13.5-17.5); LYMPHOCYTES # (AUTO) 2.7 /CMM (0.8-4.8); LYMPHOCYTES % (AUTO) 16.6 % (20.0-44.0); MEAN CORPUSCULAR HGB CONC 34 g/dl (31.0-36.0); MEAN CORPUSCULAR VOLUME 88 fL (80-96); MONOCYTES # (AUTO) 1.8 /CMM (0.1-1.30); MONOCYTES % (AUTO) 10.7 % (2.0-12.0); NEUTROPHILS # (AUTO) 11.5 /CMM (1.8-8.9); NEUTROPHILS % (AUTO) 69.9 % (43.0-81.0); PLATELET COUNT (AUTO) 308 /CMM (150-450); RED BLOOD CELL COUNT(AUTO) 5.27 MIL/uL (4.5-6.0); WHITE BLOOD COUNT (AUTO) 16.5 K/uL (4.3-11.0)
[2019-12-18] MEDS ORDERED: IV NS 0.9% 1,000 ML BAG IV ONE (15:30)
[2019-12-18 15:53] LABS: CALCIUM, SERUM 9.5 mg/dL (8.5-10.1); CARBON DIOXIDE 25 mmol/L (21-32); CHLORIDE 98 mmol/L (98-107); GLUCOSE 99 mg/dL (74-106); SODIUM SERUM 136 mmol/L (136-145); UREA NITROGEN, BLOOD 26 mg/dL (7-18)
--- NOTE | 2019-12-18 15:53 | NUR ---
PT STILL UNABLE TO URINATE AT THIS TIME.
[2019-12-18 15:59] LABS: ALANINE AMINOTRANSFERASE 51 U/L (12-78); ALBUMIN 3.6 g/dL (3.4-5.0); ALKALINE PHOSPHATASE 104 U/L (46-116); ASPARTATE AMINOTRANSFERASE 49 U/L (15-37); B-TYPE NATRIURETIC PEPTIDE 244 PG/ML (0-125); BILIRUBIN,DIRECT 0.2 mg/dL (0.0-0.2); BILIRUBIN,TOTAL 0.7 mg/dL (0.2-1.0); TOTAL PROTEIN, SERUM 7.4 g/dL (6.4-8.2)
[2019-12-18] MEDS ORDERED: LOSA100T31 PO (16:32)
[2019-12-18] MEDS ORDERED: METO-357 PO (16:32)
--- NOTE | 2019-12-18 16:57 | NUR ---
GAVE MOVE SHEET AND CLINICALS TO ADMITTING
[2019-12-18] MEDS ORDERED: ONDANSETRON HCL/PF 4 MG/2 ML VIAL IVP PRN (18:00)
[2019-12-18] MEDS ORDERED: ZOLPIDEM TARTRATE 5 MG TABLET PO PRN (18:00)
[2019-12-18] MEDS ORDERED: ACETAMINOPHEN 325 MG TABLET PO PRN (18:00)
[2019-12-18] MEDS ORDERED: Z GUARD REMEDY 2 OZ OINT TP PRN (18:00)
[2019-12-18] MEDS ORDERED: IV 1/2NS 1000 ML 1,000 ML IV PRN (18:00)
[2019-12-18] MEDS ORDERED: MAGNESIUM HYDROXIDE 30 ML UDC PO PRN (18:00)
[2019-12-18] MEDS ORDERED: MAG HYDROX/AL HYDROX/SIMETH 30 ML UDC PO PRN (18:00)
--- NOTE | 2019-12-18 18:02 | NUR ---
CALLED NURSING SUP FOR TELE BED
--- NOTE | 2019-12-18 18:21 | NUR ---
PT IS PROVIDED WITH FOOD
--- NOTE | 2019-12-18 20:17 | NUR ---
CALLED NURSING SUP FOR ROOM. COVID NEGATIVE
--- NOTE | 2019-12-18 20:33 | NUR ---
REPROT GIVEN TO RUSSELL DAVEY FOR SHI.
--- NOTE | 2019-12-18 20:56 | NUR ---
pt transported to unit on [facility] with emt and rn at bedside w/ acls protocol. nad noted during transport. pt ambulated from [facility] to bed.
[2019-12-18 21:30] VITALS: BP 110/73
[2019-12-18] MEDS ORDERED: CEFTRIAXONE 1 G VIAL ONE (21:37)
[2019-12-18] MEDS: CEFTRIAXONE 1 G in IV D5W 50 ML IV SCH (21:43)
[2019-12-18] MEDS: HYDROCODONE/APAP 5/325MG 1 EACH TABLET PO PRN (22:03)
--- NOTE | 2019-12-18 23:00 | NUR ---
RN NOTES ADMITTED PATIENT FROM ED DUE TO GENERALIZED WEAKNESS, INABILITY TO VOID, DIZZINESS, NAUSEA, DX OF ACUTE RENAL FAILURE, BUN 26, CREATININE 3.0, PER PATIENT LAST VOID 12/17/19, LAST BM 12/18/19. ALERT AND ORIENTED X4, STABLE ON ROOM AIR, LUNG SOUNDS ARE CLEAR ON AUSCULTATION, ABDOMEN SOFT, NON TENDER, SR ON THE TELE, 1/2 NS AT 125 ML/HR, TROP NEGATIVE, RENAL US NEGATIVE OF HYDRONEPHROSIS AND NO RENAL CALCULI, BLADDER PARTIALLY DECOMPRESSED. WBC 16.5, BNP 244, ON ROCEPHIN IV DAILY. PATIENT INDEPENDENT OF ADLS
[2019-12-18 23:56] VITALS: BP 126/68
[2019-12-19] VITALS: BP 112/74
--- NOTE | 2019-12-19 02:32 | NUR ---
RN NOTES NO CHEMICAL FOR VTE PER MD, VTE 2
[2019-12-19] MEDS: HYDROCODONE/APAP 5/325MG 1 EACH TABLET PO PRN ×2 (03:01→18:21)
--- NOTE | 2019-12-19 03:25 | NUR ---
RN NOTES NO URINE OUTPUT SINCE ADMISSION, BLADDER NOT DISTENDED, NO URGE TO VOID, BLADDER SCAN PERFORMED, 21 ML RESULT
--- NOTE | 2019-12-19 03:44 | NUR ---
RN NOTES NOTIFIED DR. ROSA REGARDING NO URINE OUTPUT, DECREASE RATE OF NS TO 80 ML/HR
[2019-12-19 04:00] VITALS: BP 148/72
[2019-12-19 04:01] VITALS: BP 109/54
--- NOTE | 2019-12-19 06:18 | NUR ---
RN NOTES ALERT AND ORIENTED X4, ROOM AIR, COMPLAINING OF EPIGASTRIC PAIN, AND LEFT FOOT CRAMPING, GIVEN NORCO WITH ADEQUATE RELIEF, 1/2 NS 80 ML/HR, NO URINE OUTPUT, BLADDER SCAN PERFORMED, 21 ML, NO BLADDER DISTENSION, NO URGE TO VOID, DR. ROSA MADE AWARE, ELEVATED BUN/CREATININE, DX OF ACUTE RENAL FAILURE.
[2019-12-19] MEDS: IV 1/2NS 1000 ML 1,000 ML IV PRN (06:39)
[2019-12-19 06:41] LABS: BASOPHILS % (AUTO) 0.5 % (0.0-2.0); HEMATOCRIT 44 % (39-51); HEMOGLOBIN 14.7 g/dL (13.5-17.5); LYMPHOCYTES # (AUTO) 2.5 /CMM (0.8-4.8); LYMPHOCYTES % (AUTO) 25.1 % (20.0-44.0); MEAN CORPUSCULAR HGB CONC 33 g/dl (31.0-36.0); MEAN CORPUSCULAR VOLUME 89 fL (80-96); MONOCYTES # (AUTO) 1.1 /CMM (0.1-1.30); NEUTROPHILS # (AUTO) 5.7 /CMM (1.8-8.9); NEUTROPHILS % (AUTO) 58.4 % (43.0-81.0); PLATELET COUNT (AUTO) 287 /CMM (150-450); RED BLOOD CELL COUNT(AUTO) 4.98 MIL/uL (4.5-6.0); WHITE BLOOD COUNT (AUTO) 9.8 K/uL (4.3-11.0)
--- NOTE | 2019-12-19 06:57 | NUR ---
RN NOTES PATIENT VOIDED, URINE OUTPUT 1000 ML, TISH COLORED.
[2019-12-19 07:00] LABS: THYROID STIMULATING HORMONE 2.271 uIU/mL (0.358-3.74)
[2019-12-19 07:04] LABS: CALCIUM, SERUM 8.7 mg/dL (8.5-10.1); MAGNESIUM 2.1 mg/dL (1.8-2.4); POTASSIUM 3.8 mmol/L (3.5-5.1)
--- NOTE | 2019-12-19 07:44 | NUR ---
PULLER OVER OPENING NOTES RECEIVED PT ON BED, A/OX4, RESPONSIVE TO ALL STIMULI, MAURITANIAN SPEAKING. RESPIRATION EVEN AND NON LABORED WITH NO ACUTE RESPIRATORY DISTRESS, ON RA. ABD SOFT AND NON DISTENDED WITH ACTIVE BOWEL SOUNDS. SKIN WARM TO TOUCH AND DRY. DENIES PAIN AND DISCOMFORT. ABLE TO VOID THIS AM AT 1000 TISH COLOR TEA URINE PER REPORT. IV SITE AT LEFT AC #18 RUNNING 1/2 NS AT 80 ML/HR. TELE MONITOR SHOWS SINUS TACHYCARDIA 106. BED IN LOW LOCKED POSITION, SRX2 UP FOR SAFETY, CALL LIGHT WITHIN REACHED. WILL CONTINUE TO EVALUATE CARE.
[2019-12-19 08:00] VITALS: BP 150/95
[2019-12-19] MEDS: CEFTRIAXONE 1 G in IV D5W 50 ML IV SCH (08:57)
[2019-12-19 11:24] LABS: APPEARANCE,URINE CLEAR (CLEAR); BILIRUBIN,URINE NEGATIVE (NEGATIVE); BLOOD, URINE NEGATIVE Ery/uL (NEGATIVE); COLOR,URINE YELLOW (YELLOW); KETONES,URINE NEGATIVE (NEGATIVE); LEUKOCYTE ESTERASE ,URINE NEGATIVE (NEGATIVE); NITRITE, URINE NEGATIVE (NEGATIVE); PH,URINE 5.5 (5.0-8.0); PROTEIN,URINE NEGATIVE (NEGATIVE); UGLUCOSE NEGATIVE (NEGATIVE); UROBILINOGEN,URINE 0.2 EU/dL (0.2)
--- NOTE | 2019-12-19 11:29 | NUR ---
M/S RN NOTES PT SEEN AND EVALUATED BY DR. RAMIRES. NO NEW ORDERS OBTAINED FROM .
[2019-12-19 12:13] LABS: CREATININE, URINE 114.9 MG/DL (30.0-125.0); URINE TOTAL PROTEIN 5.4 mg/dL (0-11.9)
[2019-12-19] MEDS: METOPROLOL SUCCINATE 50 MG TAB.SR.24H PO SCH (12:33)
[2019-12-19 12:59] LABS: EOSINOPHIL,URINE None Seen
[2019-12-19 16:00] VITALS: BP 138/88
--- NOTE | 2019-12-19 18:42 | NUR ---
M/S RN CLOSING NOTES PT AAOX4. NO C/O OF SOB, TOLERATING RA SATING 98%. PAIN SCALE 7-8/10 BACK PAIN, NORCO 5/325 MG TAB ADMINISTERED ORDERED, MONITOR EFFECTIVENESS. SKIN REMAIN INTACT, NO NEW SKIN BREAKDOWN, WARM TO TOUCH AND DRY. BM X1 TODAY, ABLE TO VOID X4 TISH COLOR URINE, NO ODOR. IV SITE AT LEFT AC PATENT IN FLUSHING, SITE HAS NO S/SX OF INFILTRATION RUNNING 1/2 NS AT 80 ML/HR. BED IN LOW LOCKED POSITION, SRX2 UP FOR SAFETY, CALL LIGHT WITHIN REACH. ENDORSED CARE TO NEXT SHIFT.
--- NOTE | 2019-12-19 19:38 | NUR ---
MS RN OPEN NOTES PATIENT IS SLEEPING. ON RA, NO SOB/ ACUTE RESPIRATORY DISTRESS NOTED. APPEARS COMFORTABLE/ NO COMPLAINTS OF PAIN AT THE MOMENT. BED IS IN LOWEST LOCKED POSITION WITH SIDE RAILS UP X2, SEMI FOWLERS. CALL LIGHT IS WITHIN REACH. WILL CONTINUE TO MONITOR.
[2019-12-19 20:00] VITALS: BP 136/72
--- NOTE | 2019-12-20 | NUR ---
MS RN NOTES PATIENT REFUSED PLACEMENT OF [employer]VAR[employer]O CATHETER. STATED HE JUST WANTS TO GO HOME. WILL CONTINUE TO MONITOR
[2019-12-20] MEDS: HYDROCODONE/APAP 5/325MG 1 EACH TABLET PO PRN (01:26)
[2019-12-20] MEDS: IV 1/2NS 1000 ML 1,000 ML IV PRN (04:33)
--- NOTE | 2019-12-20 06:35 | NUR ---
MS RN CLOSE NOTES PATIENT IS LAYING IN BED. A/0 X4. ON RA, NO SOB/ ACUTE RESPIRATORY DISTRESS NOTED. IV IN L AC #18G IS PATENT AND INTACT, RUNNING 1/2 NS @ 80MLS/HR. APPEARS COMFORTABLE/ NO COMPLAINTS OF PAIN AT THE MOMENT. PATIENT IS AMBULATORY. BED IS IN LOWEST LOCKED POSITION WITH SIDE RAILS UP X2, SEMI FOWLERS. CALL LIGHT IS WITHIN REACH. WILL ENDORSE TO AM NURSE.
[2019-12-20 06:56] LABS: BASOPHILS # (AUTO) 0.1 /CMM (0.0-0.2); BASOPHILS % (AUTO) 0.7 % (0.0-2.0); EOSINOPHILS % (AUTO) 6.8 % (0.0-6.0); HEMATOCRIT 45 % (39-51); HEMOGLOBIN 14.9 g/dL (13.5-17.5); LYMPHOCYTES # (AUTO) 1.9 /CMM (0.8-4.8); LYMPHOCYTES % (AUTO) 21.4 % (20.0-44.0); MEAN CORPUSCULAR HGB CONC 33 g/dl (31.0-36.0); MEAN CORPUSCULAR VOLUME 89 fL (80-96); MONOCYTES # (AUTO) 1.5 /CMM (0.1-1.30); MONOCYTES % (AUTO) 17.3 % (2.0-12.0); NEUTROPHILS # (AUTO) 4.7 /CMM (1.8-8.9); NEUTROPHILS % (AUTO) 53.8 % (43.0-81.0); PLATELET COUNT (AUTO) 266 /CMM (150-450); RED BLOOD CELL COUNT(AUTO) 5.06 MIL/uL (4.5-6.0); WHITE BLOOD COUNT (AUTO) 8.8 K/uL (4.3-11.0)
[2019-12-20 07:34] LABS: ALBUMIN 3.1 g/dL (3.4-5.0); BILIRUBIN,TOTAL 0.5 mg/dL (0.2-1.0); MAGNESIUM 2.2 mg/dL (1.8-2.4); PHOSPHORUS 3.2 mg/dL (2.5-4.9); POTASSIUM 4.9 mmol/L (3.5-5.1); TOTAL PROTEIN, SERUM 6.8 g/dL (6.4-8.2)
[2019-12-20 08:00] VITALS: BP 111/57
--- NOTE | 2019-12-20 08:00 | NUR ---
MS RN NOTES PATIENT IN BED RESTING NO SOB OR ACUTE DISTRESS NOTED. PATIENT ALERT, ORIENTED X3. PERIPHERAL IV INTACT PATENT. BED IN LOW LOCKED POSITION. CALL LIGHT WITHIN REACH. WILL CONTINUE TO MONITOR.
[2019-12-20 08:44] VITALS: BP 111/60
[2019-12-20] MEDS: METOPROLOL SUCCINATE 50 MG TAB.SR.24H PO SCH (08:44)
[2019-12-20] MEDS: CEFTRIAXONE 1 G in IV D5W 50 ML IV SCH (08:44)
[2019-12-20] MEDS ORDERED: CEPH500C2 PO (12:43)
--- NOTE | 2019-12-20 15:08 | NUR ---
MS RN NOTES PATIENT DISCHARGE HOME IN STABLE CONDITION. DISCHARGE TEACHING PROVIDED. VERBALIZED UNDERSTANDING. ALL BELONGINGS ACCOUNTED FOR, BELONGING LIST SIGNED. DISCHARGE PROTOCOL FOLLOWED. CALLED [facility] PATIENTS PREFERRED, PATIENTS MEDICATION READY FOR TAKER OFF BRAKER MACHINE. MD AWARE OF ALL ABNORMAL LABS AND TESTS. PERIPHERAL IV REMOVED. ID BAND REMOVED. HOME MEDICATIONS RETURNED TO PATIENT. PATIENT ESCORTED TO CAR.
[2019-12-20] MEDS ORDERED: CEPHALEXIN MONOHYDRATE 500 MG CAPSULE PO SCH (21:00)
== END 2019-12-20 15:15 | disposition home or self-care (01) | DRG 204 ==
LOC: ER 14:03 → TELE 20:44 → MED 12-19 08:18
PROVIDERS: ADMIT Student in an Organized Health Care Education/Training Program; ATTEND Student in an Organized Health Care Education/Training Program
DX: I95.1 Orthostatic hypotension (principal); N39.0 Urinary tract infection, site not specified; N17.0 Acute kidney failure with tubular necrosis; G43.909 Migraine, unspecified, not intractable, without status migrainosus; I10 Essential (primary) hypertension; E66.01 Morbid (severe) obesity due to excess calories; Z88.5 Allergy status to narcotic agent; Z98.890 Other specified postprocedural states; Z79.899 Other long term (current) drug therapy; R33.9 Retention of urine, unspecified; G89.29 Other chronic pain; F17.200 Nicotine dependence, unspecified, uncomplicated; R23.4 Changes in skin texture; Z68.43 Body mass index [BMI] 50.0-59.9, adult
CPT/HCPCS: 36415; 71045-TC; 76770-TC; 80048-TC; 80053-TC; 80061-TC; 80076-TC; 81000-TC; 82570-TC; 83605-TC; 83735-TC; 83880; 84100-TC; 84155-TC; 84300-TC; 84443-TC; 84484-TC; 85025-TC; 87040-TC; 87081-TC; G0378; J0696; J3490; J7030; J7060